=== PATIENT | male | born 1940 | race Caucasian/White ===

== ENCOUNTER 2019-01-26 15:55 | Emergency (ER) | payer MEDICARE, OTHER ==
[2019-01-26] MEDS ORDERED: diphenhydrAMINE 50 MG Cap PO ONE (16:17)
[2019-01-26] MEDS ORDERED: methylPREDNISolone Sodium Succinate 125 MG/2 ML SDV IM ONE (16:17)
--- NOTE | 2019-01-26 16:29 | EDM.PDOC ---
ED HPI GENERAL MEDICAL PROBLEM - General Chief Complaint: Skin Complaint Stated Complaint: SKIN REACTION Time Seen by Provider: 01/26/19 16:11 Source of Information: Reports: Patient History Limitations: Reports: No Limitations - History of Present Illness INITIAL COMMENTS - FREE TEXT/NARRATIVE: HISTORY AND PHYSICAL: History of present illness: patient is a 78-year-old male who presents to the emergency room today with complaints of bilateral upper extremity and trunk well which she started to develop earlier this afternoon. He states the welts have progressively gotten worse and are pruritic in nature. He denies any new exposures such as detergents , foods or medications. He denies any respiratory involvement. Patient denies any fever, chills, headache, change in vision, syncope or near syncope. Denies any chest pain, back pain, shortness of breath or cough. Denies any abdominal pain, nausea, vomiting, diarrhea, constipation or dysuria. Has not noted any blood in urine or stool. Patient has been eating and drinking appropriately. Review of systems: As per history of present illness and below otherwise all systems reviewed and negative. Past medical history: As per history of present illness and as reviewed below otherwise noncontributory. Surgical history: As per history of present illness and as reviewed below otherwise noncontributory. Social history: See social history for further information Family history: As per history of present illness and as reviewed below otherwise noncontributory. Physical exam: General: well-developed and well-nourished 78-year-old male. Alert and oriented. Nontoxic appearing and in no acute distress. HEENT: Atraumatic, normocephalic, pupils equal and reactive bilaterally, negative for conjunctival pallor or scleral icterus, mucous membranes moist, TMs normal bilaterally, throat clear, neck supple, nontender, trachea midline. No drooling or trismus noted. No meningeal signs. No hot potato voice noted. Lungs: Clear to auscultation, breath sounds equal bilaterally, chest nontender.no respiratory involvement. Heart: S1S2, regular rate and rhythm without overt murmur Abdomen: Soft, nondistended, nontender. Negative for masses or hepatosplenomegaly. Negative for costovertebral tenderness. Skin: Urticaria rash noted to bilateral antecubital space into biceps and right chest wall into abdomen and groin. Otherwise remaining skin is intact, warm, dry. No lesions or rashes noted. Extremities: Atraumatic, moves all extremities per self without difficulty or deficits. Neurovascular unremarkable. Neuro: Awake, alert, oriented. Cranial nerves II through XII unremarkable. Cerebellum unremarkable. Motor and sensory unremarkable throughout. Exam nonfocal. Notes: I did have Dr. Castle look at this patient as well. He is agreeable that this is possibly an allergic type reaction. signs and symptoms that would prompt him to return to the emergency room were reviewed and discussed.Supportive care measures were reviewed and discussed. Voices understanding and is agreeable to plan of care. Denies any further questions or concerns at this time. Diagnostics: none Therapeutics: Solu-Medrol, Benadryl Prescription: Medrol Dosepak Impression: urticaria Plan: 1. Avoid triggers. Continue to monitor for possible exposures/triggers/foods. 2. While symptomatic continue to routinely take Benadryl 50mg every 4-6 hours and Zantac 150mg twice daily. Take the Medrol dose pack as prescribed. 3. You may use topical calamine lotion, cool tempid oatmeal baths, Aveeno bath/ lotions. 4. Please follow up with your Primary care doctor as we discussed Return to the ED as needed and as discussed. Definitive disposition and diagnosis as appropriate pending reevaluation and review of above. - Related Data Allergies Allergy/AdvReac Type Severity Reaction Status Date / Time No Known Allergies Allergy Verified 11/26/13 08:19 Home Meds: Home Meds Allopurinol [Zyloprim] 1 tab PO DAILY 11/26/13 [History] Metoprolol Succinate [Toprol XL 100mg] 100 mg PO DAILY 11/26/13 [History] Warfarin [Coumadin] 5 mg PO DAILY #30 tab 11/27/13 [Rx] Losartan Potassium 01/26/19 [History] methylPREDNISolone [Medrol] 1 dose PO DAILY 6 Days #1 dospk 01/26/19 [Rx] Past Medical History Cardiovascular History: Reports: Afib, Hypertension Musculoskeletal History: Reports: Gout Neurological History: Reports: TIA Social & Family History - Family History Family Medical History: Noncontributory - Tobacco Use Smoking Status *Q: Never Smoker - Recreational Drug Use Recreational Drug Use: No ED ROS GENERAL - Review of Systems Review Of Systems: Comprehensive ROS is negative, except as noted in HPI. ED EXAM, SKIN/RASH Exam: See Below (See dictation) Course - Vital Signs Last Recorded V/S: Last Vital Signs Temp 96.2 F 01/26/19 16:16 Pulse 92 01/26/19 16:16 Resp 16 01/26/19 16:16 BP 146/74 H 01/26/19 16:16 Pulse Ox 99 01/26/19 16:16 - Orders/Labs/Meds Meds: Medications Discontinued Medications Generic Name Dose Route Start Last Admin Trade Name Rosa PRDre Reason Stop Dose Admin Diphenhydramine HCl 50 mg 01/26/19 16:17 01/26/19 16:33 Benadryl PO 01/26/19 16:18 50 mg ONETIME ONE Administration Methylprednisolone Sodium Succinate 125 mg 01/26/19 16:17 01/26/19 16:33 Solu-Medrol IM 01/26/19 16:18 125 mg ONETIME ONE Administration Departure - Departure Time of Disposition: 16:29 Disposition: Home, Self-Care 01 Clinical Impression: Urticaria - Discharge Information Prescriptions: methylPREDNISolone [Medrol] 1 dose PO DAILY 6 Days #1 dospk Referrals: Rolan Nevarez MD [Primary Care Provider] - Forms: ED Department Discharge Additional Instructions: The following information is given to patients seen in the emergency department who are being discharged to home. This information is to outline your options for follow-up care. We provide all patients seen in our emergency department with a follow-up referral. The need for follow-up, as well as the timing and circumstances, are variable depending upon the specifics of your emergency department visit. If you don't have a primary care physician on staff, we will provide you with a referral. We always advise you to contact your personal physician following an emergency department visit to inform them of the circumstance of the visit and for follow-up with them and/or the need for any referrals to a consulting specialist. The emergency department will also refer you to a specialist when appropriate. This referral assures that you have the opportunity for follow-up care with a specialist. All of these measure are taken in an effort to provide you with optimal care, which includes your follow-up. Under all circumstances we always encourage you to contact your private physician who remains a resource for coordinating your care. When calling for follow-up care, please make the office aware that this follow-up is from your recent emergency room visit. If for any reason you are refused follow-up, please contact the [facility] Emergency Department at and asked to speak to the emergency department charge nurse. [facility] [address] [place] [address] [address] 1. Avoid triggers. Continue to monitor for possible exposures/triggers/foods. 2. While symptomatic continue to routinely take Benadryl 50mg every 4-6 hours and Zantac 150mg twice daily. Take the Medrol dose pack as prescribed. 3. You may use topical calamine lotion, cool tempid oatmeal baths, Aveeno bath/ lotions. 4. Please follow up with your Primary care doctor as we discussed Return to the ED as needed and as discussed.
[2019-01-26 17:20] VITALS: BP 139/73; PULSE 81
== END 2019-01-26 17:20 | disposition home or self-care (01) ==
LOC: MW.ED 15:55
DX: L50.9 Urticaria, unspecified (principal); I10 Essential (primary) hypertension; I48.91 Unspecified atrial fibrillation; Z86.73 Personal history of transient ischemic attack (TIA), and cerebral infarction without residual deficits; Z79.01 Long term (current) use of anticoagulants; Z79.899 Other long term (current) drug therapy
CPT/HCPCS: 96372; 99283; A9270; J2930

== ENCOUNTER 2020-04-07 10:09 | Emergency (ER) | payer MEDICARE, OTHER ==
[2020-04-07] MEDS ORDERED: Sodium Chloride 0.9% 10 ML Syringe FLUSH PRN (10:23)
[2020-04-07] MEDS ORDERED: Sodium Chloride 0.9% 2.5 ML Syringe FLUSH PRN (10:23)
--- NOTE | 2020-04-07 10:48 | PCM.SN.2 ---
#1 Interpretation EKG Date: 04/07/20 Time: 10:09 Rhythm: A-Fib Rate (Beats/Min): 121 [place]: Normal P-Wave: Present QRS: Normal ST-T: Normal QT: Normal EKG Interpretation Comments: Atrial fibrillation at a rate of 121 bpm without overt ischemic changes
--- NOTE | 2020-04-07 11:01 | CR ---
INDICATION: Difficulty breathing. Cardiac surgery March 30, 2020 COMPARISON: None TECHNIQUE: Single-view chest radiograph obtained portably FINDINGS: TUBES AND LINES: None. HEART AND MEDIASTINUM: Mildly enlarged heart. Sternotomy.. LUNGS AND PLEURAL SPACES: Right lung the right pleural space. Airspace disease in the left midlung and left base and small left effusion. Subcutaneous emphysema on the left. No visible pneumothorax. OSSEOUS STRUCTURES: Age-appropriate appearance. No acute focal finding. IMPRESSION: 1. Mildly enlarged heart. Sternotomy. 2. Airspace disease in the left midlung and left base and small left effusion. 3. Significant subcutaneous emphysema on the left but no visible pneumothorax. The exact etiology of this subcutaneous emphysema is not visible on the study. 4. Normal appearing right lung and right pleural space. Dictated by Moises Ash MD @ Apr 07 2020 10:57AM Signed by Dr. Moises Ash @ Apr 07 2020 10:59AM
[2020-04-07 11:11] LABS: BLOOD UREA NITROGEN,BUN 32 mg/dL (7.0-18.0); CARBON DIOXIDE,CO2 26.5 mmol/L (21.0-32.0); CHLORIDE,CL 102 mmol/L (98-107); GLUCOSE RANDOM 106 mg/dL (74-106); SODIUM,NA 139 mmol/L (136-148)
[2020-04-07] MEDS ORDERED: Aspirin 81 MG Tab.Chew PO ONE (11:19)
[2020-04-07] MEDS ORDERED: Iopamidol 755 MG/ML 500 ML Multipack Bottle IVPUSH ONE (13:01)
--- NOTE | 2020-04-07 13:35 | CT ---
INDICATION: Dyspnea. Recent open heart surgery. TECHNIQUE: CT chest pulmonary angiogram acquired with IV contrast. COMPARISON: Chest radiograph 04/07/2020 FINDINGS: The thoracic aorta is normal in caliber. There is atherosclerotic calcification. Main pulmonary artery is normal in caliber. No pulmonary embolus. Sequelae of recent median sternotomy and cardiac surgery with a small amount of fluid and gas within the anterior mediastinum. No abscess formation. There is also gas within the chest wall, greater on the left. This extends from the anterior chest laterally and into the posterior thoracic tissues as well as caudally along the lateral upper abdomen. Distal extent is not imaged. Subcutaneous gas extends into the base of the neck and the cephalad extent is not imaged. Heart size is prominent. Small amount of pericardial fluid. Reflux of contrast into the IVC and hepatic veins likely reflects a degree of right heart failure. Moderate-sized bilateral pleural effusions right greater than left. No pneumothorax. There are biapical pleural parenchymal opacities. There is emphysema with scattered blebs. Irregular curvilinear opacity in the right apex measuring 1.2 by 0.5 by 1.4 cm (axial image 63, coronal image 94). Mild degree of compressive atelectasis in the right lower lobe. There is mild linear atelectasis in the lingula and mild compressive atelectasis in the left lower lobe. No lymphadenopathy. No acute abnormality in the upper abdomen. Other than median sternotomy, there is no acute osseous abnormality. No suspicious bone lesion. IMPRESSION: 1. No pulmonary embolus. 2. Sequelae of recent median sternotomy and cardiac surgery with small amount of anterior mediastinal fluid and gas as well as subcutaneous gas in the chest, neck and upper abdomen. 3. Moderate sized bilateral pleural effusions, right greater than left. Small amount of pericardial fluid. 4. Emphysema with irregular nodular opacity in the right apex. Comparison to prior CT would be useful to document stability. Otherwise this requires further evaluation with PET-CT or short interval follow-up CT in 3 months. Please note that all CT scans at this facility use dose modulation, iterative reconstruction, and/or weight-based dosing when appropriate to reduce radiation dose to as low as reasonably achievable. Dictated by Sundar Newman MD @ Apr 07 2020 1:20PM Signed by Dr. Sundar Newman @ Apr 07 2020 1:34PM
[2020-04-07] MEDS ORDERED: Furosemide 40 MG/4 ML VIAL IVPUSH ONE (14:12)
[2020-04-07 14:52] VITALS: BP 166/96; PULSE 103
--- NOTE | 2020-04-07 15:08 | EDM.PDOC ---
ED HPI GENERAL MEDICAL PROBLEM - General Chief Complaint: Chest Pain Stated Complaint: CAN NOT BREATH Time Seen by Provider: 04/07/20 10:10 Source of Information: Reports: Patient History Limitations: Reports: No Limitations - History of Present Illness INITIAL COMMENTS - FREE TEXT/NARRATIVE: HISTORY AND PHYSICAL: History of present illness: Patient is a 79-year-old male who presents to the emergency room today with concern of shortness of breath with his . Patient states he is 8 days out from a quadruple bypass surgery that he had done with Dr. Fito Traore at [facility] in [place]. Patient states that he was just discharged and got home yesterday. Patient states starting last night, he began feeling short of breath which worsened throughout the night. Patient states he was unable to sleep due to the shortness of breath. Patient states he also has a history of COPD, afib on warfarin, htn. Patient states following the surgery, his INR was a little bit lower so they had "given him a medication "to speed up his INR. Patient states that he did not have any complications during the surgery and that his stay in the hospital he was feeling generally well. Patient states he was not having any significant shortness of breath until last night. Patient denies fever, chills, chest pain, or cough. Denies headache, neck stiff ness, change in vision, syncope, or near syncope. Denies nausea, vomiting, abdominal pain, diarrhea, constipation, or dysuria. Has not noted any blood in urine or stool. Review of systems: As per history of present illness and below otherwise all systems reviewed and negative. Past medical history: As per history of present illness and as reviewed below otherwise noncontributory. Surgical history: As per history of present illness and as reviewed below otherwise noncontributory. Social history: See social history for further information Family history: As per history of present illness and as reviewed below otherwise noncontributory. Physical exam: General: Patient is alert, oriented, and moderate respiratory distress. Patient sitting on exam table, labored breathing, RR30, O295%, [id number] otherwise vitally stable. HEENT: Atraumatic, normocephalic, pupils equal and reactive bilaterally, negative for conjunctival pallor or scleral icterus, mucous membranes moist, TMs normal bilaterally, throat clear, neck supple, nontender, trachea midline. No drooling or trismus noted. No meningeal signs. No hot potato voice noted. Lungs/chest: Incision consistent with recent surgical history. No erythema, drainage, blood, or pus noted from incision and healing appropriately. Patient speaking 1-2 words with breathlessness, no wheezing or stridor, using accessory muscle use with moderate respiratory distress. Clear to auscultation, breath sounds equal bilaterally, chest nontender. Heart: Tachycardic 120s, S1S2, irregular rate and rhythm without overt murmur Abdomen: Soft, nondistended, nontender. Negative for masses or hepatosplenomegaly. Negative for costovertebral tenderness. Pelvis: Stable nontender. Genitourinary: Deferred. Rectal: Deferred. Skin: Intact, warm, dry. No lesions or rashes noted. Extremities: Atraumatic, negative for cords or calf pain. Neurovascular unremarkable. Neuro: Awake, alert, oriented. Cranial nerves II through XII unremarkable. Cerebellum unremarkable. Motor and sensory unremarkable throughout. Exam nonfocal. Notes: Dr. Arambula verbally involved in patient care. See his official dictation for EKG interpretation. Upon initial exam, patient does have labored breathing with increased respiratory rate and heart rate. He is maintaining his oxygen at this time. Patient was quickly placed to BiPAP. After 5 to 10 minutes of initiation of BiPAP, patient appears much more comfortable and is able to speak full sentences with the BiPAP mask on. His vitals have stabilized on Bipap and his respiratory rate is now 17, oxygen 100%, heart rate 90s to 100s. His blood pressure remains stable at 150s over 90s. I did call and speak to patients surgeon, Dr. Fito Traore and thoroughly discussed patients case. Will transfer to [facility]. I then spoke to the hospitalist for [facility], Dr. Lopez and accepting of transfer, she requests patient receive a dose of Lasix while in the ED. Flight arranged. Patient remains vitally stable throughout remainder of stay in ED and flight at bedside and patient stable. All incidental findings of imaging today discussed with patient and the importance for follow up; expresses understanding. Diagnostics: EKG, CBC, CMP, UA, CXR, Trop, CKMB, Ang CT, ddimer, PT/INR, PTT, ABG Therapeutics: Bipap, ASA, Saline lock, Lasix Impression: Acute respiratory failure Post op cardiac bypass, day 8 Congestive Heart Failure Bilateral pleural effusion Acute kidney injury Plan: Transfer to [facility] to Dr. Lopez, hospitalist / Dr. Fito Traore, vascular surgeon via flight. Critical care time is exclusive of billable procedures and the time to perform these procedures. Critical care time was used to prevent vital system organ failure and deterioration. Critical care time includes bedside management and high-complexity decision making requiring my highest level of mental preparedness and attention. This includes reviewing the patient's chart and prior medical records, ordering and reviewing interpreting laboratory studies and imaging results, interpretation of vital signs and EKG, pulse oximetry, and discussion with the admitting team along with EMS and nursing staff. Patient presented with critical vital signs that required immediate intervention, acute respiratory failure requiring Bipap and immediate transfer for additional close monitoring and continuation of treatment CC Time: 45 minutes Definitive disposition and diagnosis as appropriate pending reevaluation and review of above. - Related Data Allergies Allergy/AdvReac Type Severity Reaction Status Date / Time No Known Allergies Allergy Verified 11/26/13 08:19 Home Meds: Home Meds Metoprolol Succinate [Toprol XL 100mg] 100 mg PO DAILY 11/26/13 [History] allopurinoL [Zyloprim] 1 tab PO DAILY 11/26/13 [History] Warfarin [Coumadin] 5 mg PO DAILY #30 tab 11/27/13 [Rx] Losartan Potassium 01/26/19 [History] methylPREDNISolone [Medrol] 1 dose PO DAILY 6 Days #1 dospk 01/26/19 [Rx] Past Medical History Cardiovascular History: Reports: Afib, Bypass, Hypertension Musculoskeletal History: Reports: Gout Neurological History: Reports: TIA - Past Surgical History Other Cardiovascular Surgeries/Procedures: CABG x4 Social & Family History - Family History Family Medical History: No Pertinent Family History - Tobacco Use Tobacco Use Status *Q: Never Tobacco User - Recreational Drug Use Recreational Drug Use: No ED ROS GENERAL - Review of Systems Review Of Systems: Comprehensive ROS is negative, except as noted in HPI. ED EXAM, GENERAL - Physical Exam Exam: See Below (see dictation) Course - Vital Signs Last Recorded V/S: Last Vital Signs Temp 96.8 F L 04/07/20 10:10 Pulse 103 H 04/07/20 14:08 Resp 17 04/07/20 13:16 BP 166/96 H 04/07/20 14:08 Pulse Ox 99 04/07/20 14:08 - Orders/Labs/Meds Orders: Active Orders 24 hr Category Date Time Status BIPAP [RT BiPAP/CPAP] [RC] ASDIRECTED Care 04/07/20 10:24 Active Cardiac Monitoring [RC] . DIRECTED Care 04/07/20 10:23 Active EKG Documentation Completion [RC] STAT Care 04/07/20 10:23 Active UA RFX SUDHAKAR AND CULT IF INDIC [URIN] Stat Lab 04/07/20 10:23 Ordered Sodium Chloride 0.9% [Saline Flush] Med 04/07/20 10:23 Active 10 ml FLUSH ASDIRECTED PRN Sodium Chloride 0.9% [Saline Flush] Med 04/07/20 10:23 Active 2.5 ml FLUSH ASDIRECTED PRN Saline Lock Insert [OM.PC] Stat Oth 04/07/20 10:23 Ordered Medication Orders Sodium Chloride (Saline Flush) 10 ml FLUSH ASDIRECTED PRN PRN Reason: Keep Vein Open Last Admin: 04/07/20 11:58 Dose: 10 ml Documented by: LILLY Sodium Chloride (Saline Flush) 2.5 ml FLUSH ASDIRECTED PRN PRN Reason: Keep Vein Open Last Admin: 04/07/20 11:59 Dose: 2.5 ml Documented by: LILLY Labs: Laboratory Tests 04/07/20 04/07/20 04/07/20 Range/Units 10:19 10:19 10:19 WBC 14.05 H (4.0-11.0) K/uL RBC 3.85 L (4.50-5.90) M/uL Hgb 11.7 L (13.0-17.0) g/dL Hct 36.0 L (38.0-50.0) % MCV 93.5 (80.0-98.0) fL MCH 30.4 (27.0-32.0) pg MCHC 32.5 (31.0-37.0) g/dL RDW Std Deviation 49.3 (28.0-62.0) fl RDW Coeff of Sarah 15 (11.0-15.0) % Plt Count 330 (150-400) K/uL MPV 10.10 (7.40-12.00) fL Add Manual Diff YES Neutrophils % (Manual) 76 (48.0-80.0) % Band Neutrophils % 5 % Lymphocytes % (Manual) 12 L (16.0-40.0) % Monocytes % (Manual) 3 (0.0-15.0) % Basophils % (Manual) 2 H (0.0-1.5) % Metamyelocytes % 2 % Nucleated RBC % 0.0 /100WBC Absolute Seg Neuts 10.7 H (1.4-5.7) Band Neutrophils # 0.7 Lymphocytes # (Manual) 1.7 (0.6-2.4) Monocytes # (Manual) 0.4 (0.0-0.8) Basophils # (Manual) 0.3 H (0.0-0.1) Absolute Metamyelocyte 0.3 Nucleated RBCs # 0 K/uL D-Dimer, Quantitative 2.53 H (0.0-0.50) mg/L FEU ABG pH (7.35-7.45) ABG pCO2 (35-45) mmHG ABG pO2 (75-100) mmHG ABG HCO3 (22-26) mEq/L ABG Total CO2 ABG Base Excess (-2.0-2.0) Lactate (0.20-2.00) mmol/L Sodium 139 (136-148) mmol/L Potassium 4.0 (3.5-5.1) mmol/L Chloride 102 (98-107) mmol/L Carbon Dioxide 26.5 (21.0-32.0) mmol/L BUN 32 H (7.0-18.0) mg/dL Creatinine 1.4 H (0.8-1.3) mg/dL Est Cr Clr Drug Dosing TNP Estimated GFR (MDRD) 49.1 ml/min Glucose 106 (74-106) mg/dL Calcium 9.1 (8.5-10.1) mg/dL Total Bilirubin 1.3 H (0.2-1.0) mg/dL AST 28 (15-37) IU/L ALT 28 (14-63) IU/L Alkaline Phosphatase 91 (46-116) U/L CK-MB (CK-2) 5.5 H (0-3.6) ng/mL Troponin I 0.208 H* (0.000-0.056) ng/mL B-Natriuretic Peptide (<100) PG/ML Total Protein 7.1 (6.4-8.2) g/dL Albumin 3.7 (3.4-5.0) g/dL Globulin 3.4 (2.6-4.0) g/dL Albumin/Globulin Ratio 1.1 (0.9-1.6) 04/07/20 04/07/20 04/07/20 Range/Units 10:19 11:15 13:26 WBC (4.0-11.0) K/uL RBC (4.50-5.90) M/uL Hgb (13.0-17.0) g/dL Hct (38.0-50.0) % MCV (80.0-98.0) fL MCH (27.0-32.0) pg MCHC (31.0-37.0) g/dL RDW Std Deviation (28.0-62.0) fl RDW Coeff of Sarah (11.0-15.0) % Plt Count (150-400) K/uL MPV (7.40-12.00) fL Add Manual Diff Neutrophils % (Manual) (48.0-80.0) % Band Neutrophils % % Lymphocytes % (Manual) (16.0-40.0) % Monocytes % (Manual) (0.0-15.0) % Basophils % (Manual) (0.0-1.5) % Metamyelocytes % % Nucleated RBC % /100WBC Absolute Seg Neuts (1.4-5.7) Band Neutrophils # Lymphocytes # (Manual) (0.6-2.4) Monocytes # (Manual) (0.0-0.8) Basophils # (Manual) (0.0-0.1) Absolute Metamyelocyte Nucleated RBCs # K/uL D-Dimer, Quantitative (0.0-0.50) mg/L FEU ABG pH 7.417 (7.35-7.45) ABG pCO2 38 (35-45) mmHG ABG pO2 110 H (75-100) mmHG ABG HCO3 25 (22-26) mEq/L ABG Total CO2 22.9 ABG Base Excess 0.2 (-2.0-2.0) Lactate 1.3 (0.20-2.00) mmol/L Sodium (136-148) mmol/L Potassium (3.5-5.1) mmol/L Chloride (98-107) mmol/L Carbon Dioxide (21.0-32.0) mmol/L BUN (7.0-18.0) mg/dL Creatinine (0.8-1.3) mg/dL Est Cr Clr Drug Dosing Estimated GFR (MDRD) ml/min Glucose (74-106) mg/dL Calcium (8.5-10.1) mg/dL Total Bilirubin (0.2-1.0) mg/dL AST (15-37) IU/L ALT (14-63) IU/L Alkaline Phosphatase (46-116) U/L CK-MB (CK-2) (0-3.6) ng/mL Troponin I (0.000-0.056) ng/mL B-Natriuretic Peptide 469 H (<100) PG/ML Total Protein (6.4-8.2) g/dL Albumin (3.4-5.0) g/dL Globulin (2.6-4.0) g/dL Albumin/Globulin Ratio (0.9-1.6) Meds: Medications Generic Name Dose Route Start Last Admin Trade Name Freq PRN Reason Stop Dose Admin Sodium Chloride 10 ml 04/07/20 10:23 04/07/20 11:58 Saline Flush FLUSH 10 ml ASDIRECTED PRN Administration Keep Vein Open Sodium Chloride 2.5 ml 04/07/20 10:23 04/07/20 11:59 Saline Flush FLUSH 2.5 ml ASDIRECTED PRN Administration Keep Vein Open Discontinued Medications Generic Name Dose Route Start Last Admin Trade Name Freq PRN Reason Stop Dose Admin Aspirin 324 mg 04/07/20 11:19 04/07/20 11:59 Aspirin PO 04/07/20 11:20 324 mg ONETIME ONE Administration Furosemide 40 mg 04/07/20 14:12 04/07/20 14:51 Lasix IVPUSH 04/07/20 14:13 40 mg NOW ONE Administration Iopamidol 100 ml 04/07/20 13:01 04/07/20 13:01 Isovue Multipack-370 (76%) IVPUSH 04/07/20 13:02 100 ml ONETIME ONE Administration Departure - Departure Time of Disposition: 15:36 Disposition: DC/Tfer to Acute Hospital 02 Clinical Impression: Postsurgical aortocoronary bypass status, Pleural effusion, Acute kidney injury Acute respiratory failure Qualifiers: Respiratory failure complication: unspecified whether with hypoxia or hypercapnia Qualified Code(s): J96.00 - Acute respiratory failure, unspecified whether with hypoxia or hypercapnia Congestive heart failure Qualifiers: Heart failure type: unspecified Heart failure chronicity: unspecified Qualified Code(s): I50.9 - Heart failure, unspecified - Discharge Information Referrals: PCP,None [Primary Care Provider] - Sepsis Event Note (ED) - Evaluation Sepsis Screening Result: No Definite Risk - Focused Exam Vital Signs: Vital Signs Temp Pulse Resp BP Pulse Ox 04/07/20 14:08 103 H 166/96 H 99 04/07/20 13:16 99 17 156/85 H 100 04/07/20 12:22 93 143/85 H 99 04/07/20 11:23 93 122/74 99 04/07/20 10:10 96.8 F L 120 H 21 H 145/83 H 92 L - My Orders Last 24 Hours: My Active Orders 04/07/20 10:23 Cardiac Monitoring [RC] . DIRECTED EKG Documentation Completion [RC] STAT UA RFX SUDHAKAR AND CULT IF INDIC [URIN] Stat Sodium Chloride 0.9% [Saline Flush] 10 ml FLUSH ASDIRECTED PRN Sodium Chloride 0.9% [Saline Flush] 2.5 ml FLUSH ASDIRECTED PRN Saline Lock Insert [OM.PC] Stat 04/07/20 10:24 BIPAP [RT BiPAP/CPAP] [RC] ASDIRECTED - Assessment/Plan Last 24 Hours: My Active Orders 04/07/20 10:23 Cardiac Monitoring [RC] . DIRECTED EKG Documentation Completion [RC] STAT UA RFX SUDHAKAR AND CULT IF INDIC [URIN] Stat Sodium Chloride 0.9% [Saline Flush] 10 ml FLUSH ASDIRECTED PRN Sodium Chloride 0.9% [Saline Flush] 2.5 ml FLUSH ASDIRECTED PRN Saline Lock Insert [OM.PC] Stat 04/07/20 10:24 BIPAP [RT BiPAP/CPAP] [RC] ASDIRECTED
== END 2020-04-07 15:10 ==
LOC: MW.ED 10:09
DX: J96.00 Acute respiratory failure, unspecified whether with hypoxia or hypercapnia (principal); I11.0 Hypertensive heart disease with heart failure; I50.9 Heart failure, unspecified; I48.91 Unspecified atrial fibrillation; N17.9 Acute kidney failure, unspecified; J90 Pleural effusion, not elsewhere classified; M10.9 Gout, unspecified; J44.9 Chronic obstructive pulmonary disease, unspecified; Z86.73 Personal history of transient ischemic attack (TIA), and cerebral infarction without residual deficits; Z79.899 Other long term (current) drug therapy; Z95.1 Presence of aortocoronary bypass graft; Z79.01 Long term (current) use of anticoagulants
CPT/HCPCS: 36415; 36600; 71045; 71275; 80053; 82553; 82803; 83605; 83880; 84484; 85025; 85379; 85610; 85730; 93005; 94660; 96374; 99291; A9270; J1940; Q9967

== ENCOUNTER 2020-05-13 17:58 | Emergency (ER) | payer MEDICARE, OTHER ==
[2020-05-13] MEDS ORDERED: Sodium Chloride 0.9% 10 ML Syringe FLUSH PRN (18:00)
[2020-05-13] MEDS ORDERED: Sodium Chloride 0.9% 2.5 ML Syringe FLUSH PRN (18:00)
[2020-05-13] MEDS ORDERED: Lactated Ringers 1,000 ML IV ONE (18:00)
--- NOTE | 2020-05-13 18:05 | EDM.PDOC ---
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 He denies LOC, nausea, vomiting, chest pain, shortness of breath, abdominal pain, palpitation, diarrhea, hip pain, headache, neck pain. He had no precipitating symptoms prior to the fall. Accu-Chek = 95. He is status pelvis quadruple bypass by Dr. Fito Traore at [facility] in March,. ROS: A 10-point review of systems, other than pertinent positives and negatives as stated per HPI, is otherwise negative Past medical history: No additional pertinent history Past Surgical history: No additional pertinent history Social history: No additional pertinent history Family history: No additional pertinent history PHYSICAL EXAM General: AOx4, GCS = 15, No distress HEENT: dry mucous membrane, contusion to the left forehead Neck: supple, no spine tenderness Cardiac: S1S2 RRR Respiratory: mild respiratory distress, no crackles or rales, no wheezing, diminished breath sounds on the left side Abdomen: Soft, nontender, no rebound or guarding, nondistended, no pulsatile mass. Back: nontender to C/T/L-spine. Musculoskeletal: NVI distally, no deformity Neuro: No focal deficits, CN 2 - 12 WNL. - Related Data Allergies Allergy/AdvReac Type Severity Reaction Status Date / Time No Known Allergies Allergy Verified 05/13/20 18:14 Home Meds: Home Meds Metoprolol Succinate [Toprol XL 100mg] 100 mg PO DAILY 11/26/13 [History] allopurinoL [Zyloprim] 1 tab PO DAILY 11/26/13 [History] Warfarin [Coumadin] 5 mg PO DAILY #30 tab 11/27/13 [Rx] Losartan Potassium 01/26/19 [History] methylPREDNISolone [Medrol] 1 dose PO DAILY 6 Days #1 dospk 01/26/19 [Rx] Aspirin [Children's Aspirin] 1 dose PO ASDIRECTED 05/13/20 [History] Furosemide [Lasix] 1 dose PO ASDIRECTED 05/13/20 [History] Past Medical History Cardiovascular History: Reports: Afib, Bypass, Hypertension Musculoskeletal History: Reports: Gout Neurological History: Reports: TIA - Past Surgical History Other Cardiovascular Surgeries/Procedures: CABG x4 Social & Family History - Family History Family Medical History: No Pertinent Family History ED ROS GENERAL - Review of Systems Review Of Systems: See Below (see dictation) ED EXAM, DIZZINESS - Physical Exam Exam: See Below (see dictation) #1 Interpretation EKG Interpretation Comments: Heart rate = 75 bpm, atrial fibrillation, normal QRS interval, no STEMI. EKG and rhythm strip interpreted by me at 1753 Course - Vital Signs Last Recorded V/S: Last Vital Signs Temp 97.7 F 05/13/20 17:58 Pulse 98 05/13/20 17:58 Resp 18 05/13/20 17:58 BP 132/72 05/13/20 17:58 Pulse Ox 98 05/13/20 17:58 - Orders/Labs/Meds Orders: Active Orders 24 hr Category Date Time Status Cardiac Monitoring [RC] . DIRECTED Care 05/13/20 18:00 Active EKG Documentation Completion [RC] STAT Care 05/13/20 18:01 Active Orthostatic Vital Signs [RC] ASDIRECTED Care 05/13/20 18:00 Active Pulse Oximetry [RC] ASDIRECTED Care 05/13/20 18:00 Active Chest 2V [CR] Stat Exams 05/13/20 18:22 Ordered B-TYPE NATRIURETIC PEPTIDE,BNP [CHEM] Stat Lab 05/13/20 17:52 Received Sodium Chloride 0.9% [Saline Flush] Med 05/13/20 18:00 Active 10 ml FLUSH ASDIRECTED PRN Sodium Chloride 0.9% [Saline Flush] Med 05/13/20 18:00 Active 2.5 ml FLUSH ASDIRECTED PRN Saline Lock Insert [OM.PC] Stat Ot 05/13/20 18:00 Ordered Medication Orders Sodium Chloride (Saline Flush) 10 ml FLUSH ASDIRECTED PRN PRN Reason: Keep Vein Open Sodium Chloride (Saline Flush) 2.5 ml FLUSH ASDIRECTED PRN PRN Reason: Keep Vein Open Labs: Laboratory Tests 05/13/20 05/13/20 05/13/20 Range/Units 17:52 17:52 17:52 WBC 8.13 (4.0-11.0) K/uL RBC 3.77 L (4.50-5.90) M/uL Hgb 11.0 L (13.0-17.0) g/dL Hct 34.3 L (38.0-50.0) % MCV 91.0 (80.0-98.0) fL MCH 29.2 (27.0-32.0) pg MCHC 32.1 (31.0-37.0) g/dL RDW Std Deviation 53.4 (28.0-62.0) fl RDW Coeff of Sarah 16 H (11.0-15.0) % Plt Count 229 (150-400) K/uL MPV 10.40 (7.40-12.00) fL Neut % (Auto) 69.8 (48.0-80.0) % Lymph % (Auto) 18.6 (16.0-40.0) % [place] % (Auto) 8.6 (0.0-15.0) % Eos % (Auto) 2.6 (0.0-7.0) % Baso % (Auto) 0.4 (0.0-1.5) % Neut # (Auto) 5.7 (1.4-5.7) K/uL Lymph # (Auto) 1.5 (0.6-2.4) K/uL [place] # (Auto) 0.7 (0.0-0.8) K/uL Eos # (Auto) 0.2 (0.0-0.7) K/uL Baso # (Auto) 0.0 (0.0-0.1) K/uL Nucleated RBC % 0.0 /100WBC Nucleated RBCs # 0 K/uL INR 1.97 APTT 30.2 (18.6-31.3) SEC Sodium 141 (136-148) mmol/L Potassium 3.9 (3.5-5.1) mmol/L Chloride 104 (98-107) mmol/L Carbon Dioxide 25.2 (21.0-32.0) mmol/L BUN 25 H (7.0-18.0) mg/dL Creatinine 1.4 H (0.8-1.3) mg/dL Est Cr Clr Drug Dosing 47.63 mL/min Estimated GFR (MDRD) 49.1 ml/min Glucose 92 (74-106) mg/dL Calcium 8.6 (8.5-10.1) mg/dL Phosphorus 2.7 (2.6-4.7) mg/dL Magnesium 1.9 (1.8-2.4) mg/dL Total Bilirubin 0.4 (0.2-1.0) mg/dL AST 20 (15-37) IU/L ALT 26 (14-63) IU/L Alkaline Phosphatase 102 (46-116) U/L Troponin I < 0.050 (0.000-0.056) ng/mL Total Protein 6.9 (6.4-8.2) g/dL Albumin 3.4 (3.4-5.0) g/dL Globulin 3.5 (2.6-4.0) g/dL Albumin/Globulin Ratio 1.0 (0.9-1.6) Urine Color Urine Appearance Urine pH (5.0-8.0) Ur Specific [place] (1.001-1.035) Urine Protein (NEGATIVE) mg/dL Urine Glucose (UA) (NEGATIVE) mg/dL Urine Ketones (NEGATIVE) mg/dL Urine Occult Blood (NEGATIVE) Urine Nitrite (NEGATIVE) Urine Bilirubin (NEGATIVE) Urine Urobilinogen (<2.0) EU/dL Ur Leukocyte Esterase (NEGATIVE) SARS-CoV-2 RNA (PB) (NEGATIVE) 05/13/20 05/13/20 Range/Units 17:58 18:20 WBC (4.0-11.0) K/uL RBC (4.50-5.90) M/uL Hgb (13.0-17.0) g/dL Hct (38.0-50.0) % MCV (80.0-98.0) fL MCH (27.0-32.0) pg MCHC (31.0-37.0) g/dL RDW Std Deviation (28.0-62.0) fl RDW Coeff of Sarah (11.0-15.0) % Plt Count (150-400) K/uL MPV (7.40-12.00) fL Neut % (Auto) (48.0-80.0) % Lymph % (Auto) (16.0-40.0) % [place] % (Auto) (0.0-15.0) % Eos % (Auto) (0.0-7.0) % Baso % (Auto) (0.0-1.5) % Neut # (Auto) (1.4-5.7) K/uL Lymph # (Auto) (0.6-2.4) K/uL [place] # (Auto) (0.0-0.8) K/uL Eos # (Auto) (0.0-0.7) K/uL Baso # (Auto) (0.0-0.1) K/uL Nucleated RBC % /100WBC Nucleated RBCs # K/uL INR APTT (18.6-31.3) SEC Sodium (136-148) mmol/L Potassium (3.5-5.1) mmol/L Chloride (98-107) mmol/L Carbon Dioxide (21.0-32.0) mmol/L BUN (7.0-18.0) mg/dL Creatinine (0.8-1.3) mg/dL Est Cr Clr Drug Dosing mL/min Estimated GFR (MDRD) ml/min Glucose (74-106) mg/dL Calcium (8.5-10.1) mg/dL Phosphorus (2.6-4.7) mg/dL Magnesium (1.8-2.4) mg/dL Total Bilirubin (0.2-1.0) mg/dL AST (15-37) IU/L ALT (14-63) IU/L Alkaline Phosphatase (46-116) U/L Troponin I (0.000-0.056) ng/mL Total Protein (6.4-8.2) g/dL Albumin (3.4-5.0) g/dL Globulin (2.6-4.0) g/dL Albumin/Globulin Ratio (0.9-1.6) Urine Color YELLOW Urine Appearance CLEAR Urine pH 5.0 (5.0-8.0) Ur Specific [place] 1.020 (1.001-1.035) Urine Protein NEGATIVE (NEGATIVE) mg/dL Urine Glucose (UA) NEGATIVE (NEGATIVE) mg/dL Urine Ketones NEGATIVE (NEGATIVE) mg/dL Urine Occult Blood NEGATIVE (NEGATIVE) Urine Nitrite NEGATIVE (NEGATIVE) Urine Bilirubin NEGATIVE (NEGATIVE) Urine Urobilinogen 0.2 (<2.0) EU/dL Ur Leukocyte Esterase NEGATIVE (NEGATIVE) SARS-CoV-2 RNA (PB) NEGATIVE (NEGATIVE) Meds: Medications Generic Name Dose Route Start Last Admin Trade Name Freq PRN Reason Stop Dose Admin Sodium Chloride 10 ml 05/13/20 18:00 Saline Flush FLUSH ASDIRECTED PRN Keep Vein Open Sodium Chloride 2.5 ml 05/13/20 18:00 Saline Flush FLUSH ASDIRECTED PRN Keep Vein Open Discontinued Medications Generic Name Dose Route Start Last Admin Trade Name Freq PRN Reason Stop Dose Admin Lactated Ringer's 1,000 mls @ 999 mls/hr 05/13/20 18:00 Ringers, Lactated IV 05/13/20 19:00 .BOLUS ONE - Re-Assessments/Exams Free Text/Narrative Re-Assessment/Exam: 05/13/20 19:[address] Edmonds, she recommends transfer to outside facility for the need of thoracentesis not available at this facility, and the need for wellness consultant services unavailable at this facility. Any emergency conditions have been stabilized to the ability of the ED prior to the transfer. Discussed with family members, they recommend going back to [facility], case was discussed and accepted by Dr. Barakat at [facility] Departure - Departure Time of Disposition: 19:00 Disposition: DC/Tfer to Acute Hospital 02 Condition: Good Clinical Impression: Near syncope, Recurrent pleural effusion on left, Dizziness - Discharge Information *PRESCRIPTION DRUG MONITORING PROGRAM REVIEWED*: Not Applicable *COPY OF PRESCRIPTION DRUG MONITORING REPORT IN PATIENT DWAINE: Not Applicable Instructions: Near-Syncope, [id number], Pleural Effusion Sepsis Event Note (ED) - Focused Exam Vital Signs: Vital Signs Temp Pulse Resp BP Pulse Ox 05/13/20 17:58 97.7 F 98 18 132/72 98 - My Orders Last 24 Hours: My Active Orders 05/13/20 17:52 B-TYPE NATRIURETIC PEPTIDE,BNP [CHEM] Stat 05/13/20 18:00 Cardiac Monitoring [RC] . DIRECTED Orthostatic Vital Signs [RC] ASDIRECTED Pulse Oximetry [RC] ASDIRECTED Sodium Chloride 0.9% [Saline Flush] 10 ml FLUSH ASDIRECTED PRN Sodium Chloride 0.9% [Saline Flush] 2.5 ml FLUSH ASDIRECTED PRN Saline Lock Insert [OM.PC] Stat 05/13/20 18:01 EKG Documentation Completion [RC] STAT 05/13/20 18:22 Chest 2V [CR] Stat - Assessment/Plan Last 24 Hours: My Active Orders 05/13/20 17:52 B-TYPE NATRIURETIC PEPTIDE,BNP [CHEM] Stat 05/13/20 18:00 Cardiac Monitoring [RC] . DIRECTED Orthostatic Vital Signs [RC] ASDIRECTED Pulse Oximetry [RC] ASDIRECTED Sodium Chloride 0.9% [Saline Flush] 10 ml FLUSH ASDIRECTED PRN Sodium Chloride 0.9% [Saline Flush] 2.5 ml FLUSH ASDIRECTED PRN Saline Lock Insert [OM.PC] Stat 05/13/20 18:01 EKG Documentation Completion [RC] STAT 05/13/20 18:22 Chest 2V [CR] Stat
[2020-05-13 18:14] VITALS: BP 132/72; PULSE 98
[2020-05-13 18:39] LABS: BLOOD UREA NITROGEN,BUN 25 mg/dL (7.0-18.0); CARBON DIOXIDE,CO2 25.2 mmol/L (21.0-32.0); CHLORIDE,CL 104 mmol/L (98-107); GLUCOSE RANDOM 92 mg/dL (74-106); POTASSIUM,K 3.9 mmol/L (3.5-5.1); SODIUM,NA 141 mmol/L (136-148)
--- NOTE | 2020-05-13 18:43 | CT ---
INDICATION: Syncope. TECHNIQUE: Head CT without intravenous contrast. Coronal and sagittal formats. COMPARISON: Head CT 11/26/2013. FINDINGS: No intracranial hemorrhage, extra-axial collection, or evidence of acute cortical infarction. Patchy periventricular and deep white matter hypoattenuation, likely reflecting chronic small vessel ischemic changes. Age-appropriate ventricles and sulci. No mass effect or midline shift. The cranium and orbits are intact. Paranasal sinuses and mastoid air cells clear. IMPRESSION: 1. No acute intracranial findings. 2. Chronic small vessel ischemic changes. Dictated by Martínez Dillard MD @ 05/13/2020 6:42:39 PM Please note that all CT scans at this facility use dose modulation, iterative reconstruction, and/or weight-based dosing when appropriate to reduce radiation dose to as low as reasonably achievable. Dictated by: Martínez Dillard MD @ 05/13/2020 18:42:46 (Electronically Signed)
--- NOTE | 2020-05-13 18:52 | CT ---
INDICATION: Syncope. TECHNIQUE: Cervical spine CT without intravenous contrast. Coronal and sagittal formats. COMPARISON: None available. FINDINGS: No static subluxation. Atlantooccipital and atlantoaxial articulations are intact. Cervical vertebral body heights are maintained. No acute fracture. Moderate multilevel degenerative disc disease, predominating at C5-C7. Multilevel uncovertebral and facet arthrosis, contributing to multilevel neural foraminal narrowing, high-grade at the left C3-C7 levels. No high-grade spinal canal stenosis. Non thickened prevertebral soft tissues. Atherosclerotic calcification predominating at the carotid bifurcations. - Imaged upper chest demonstrates mild emphysema as well as a partially imaged left pleural effusion, at least moderate volume. Partially imaged right upper lobe irregular ground-glass nodule measuring up to 1.4 cm (series 301, image 165) not substantially changed from CT 04/07/2020. IMPRESSION: 1. Cervical spine without static subluxation or acute fracture. 2. Imaged upper chest demonstrates a partially imaged left pleural effusion, at least moderate volume, as well as a right upper lobe irregular 1.4 cm ground-glass nodule. Consider further evaluation with chest CT, as clinically indicated. Dictated by Martínez Dillard MD @ 05/13/2020 6:50:47 PM Please note that all CT scans at this facility use dose modulation, iterative reconstruction, and/or weight-based dosing when appropriate to reduce radiation dose to as low as reasonably achievable. Dictated by: Martínez Dillard MD @ 05/13/2020 18:50:54 (Electronically Signed)
--- NOTE | 2020-05-13 19:05 | CR ---
INDICATION: Syncope. TECHNIQUE: PA and lateral. COMPARISON: 04/21/2020. FINDINGS: Lungs better inflated than on the previous examination. Small left-sided pleural effusion, decreased from the previous study. Tiny right-sided pleural effusion, unchanged. Subsegmental atelectasis in the lower left lung. No obvious acute infiltrate. Stable mild cardiomegaly. Cardiac postop changes, as before. Pulmonary veins not obviously engorged. No significant bony abnormality. IMPRESSION: 1. Lungs better inflated than on the previous examination. No obvious CT demonstrated. 2. Small left side pleural effusion, decreased, and unchanged tiny right-sided effusion. 3. Stable mild cardiomegaly. Dictated by Ace Diggs MD @ May 13 2020 6:58PM Signed by Dr. Ace Diggs @ May 13 2020 7:02PM
== END 2020-05-13 20:00 ==
LOC: MW.ED 17:58
DX: R55 Syncope and collapse (principal); S00.83XA Contusion of other part of head, initial encounter; J90 Pleural effusion, not elsewhere classified; J44.9 Chronic obstructive pulmonary disease, unspecified; I11.0 Hypertensive heart disease with heart failure; I50.9 Heart failure, unspecified; I25.10 Atherosclerotic heart disease of native coronary artery without angina pectoris; I48.91 Unspecified atrial fibrillation; M10.9 Gout, unspecified; Z20.822 Contact with and (suspected) exposure to COVID-19; Z86.73 Personal history of transient ischemic attack (TIA), and cerebral infarction without residual deficits; Z79.01 Long term (current) use of anticoagulants; Z95.1 Presence of aortocoronary bypass graft; W19.XXXA Unspecified fall, initial encounter
CPT/HCPCS: 36415; 70450; 71046; 72125; 80053; 81003; 83735; 83880; 84100; 84484; 85025; 85610; 85730; 93005; 99285; J7120; U0002

== ENCOUNTER 2020-08-13 07:15 | Inpatient (IN) | payer MEDICARE, OTHER ==
[2020-08-13] MEDS ORDERED: Sodium Chloride 0.9% 10 ML Syringe FLUSH PRN (07:54)
[2020-08-13] MEDS ORDERED: Sodium Chloride 0.9% 2.5 ML Syringe FLUSH PRN (07:54)
[2020-08-13] MEDS ORDERED: Sodium Chloride 0.9% 1,000 ML IV ONE (07:54)
--- NOTE | 2020-08-13 07:58 | EDM.PDOC ---
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 Patient reports that he had a recent tube removed from his left lung that was placed secondary to a pleural effusion. His reports that there was minimal fluid obtained over the last several days and it was removed last week. Patient denies any recent fevers, shakes, chills. Patient denies any nausea, vomiting or diarrhea, dysuria, frequency, urgency, chest pain, abdominal pain. Patient reports over the last day he has had increasing shortness of breath with increasing cough and feels like he might have pneumonia. Patient reports that he has not had his Covid vaccination secondary to his recent illness and was advised against it. Review of systems: As per history of present illness and below otherwise all systems reviewed and negative. Past medical history: As per history of present illness and as reviewed below otherwise noncontributory. Surgical history: As per history of present illness and as reviewed below otherwise noncontributory. Social history: No reported history of drug abuse. Family history: As per history of present illness and as reviewed below otherwise nonco ntributory. Physical exam: This patient was seen and evaluated during the 2019 SARS-CoV-2 novel coronavirus pandemic period. Community viral transmission is ongoing at time of this encounter and the emergency department is operating under pandemic response procedures. Constitutional: Patient is oriented to person, place, and time. Appears well- developed and well-nourished. No distress. HEENT: Moist mucous membranes Head: Normocephalic and atraumatic Eyes: Right eye exhibits no discharge. Left eye exhibits no discharge. No scleral icterus Neck: Normal range of motion. No tracheal deviation present. Cardiovascular: Normal rate and regular rhythm. Pulmonary: Effort normal, no respiratory distress. Abdominal: No distention Musculoskeletal: Normal range of motion Neurologic: Alert and oriented to person, place and time. Skin: [place], warm and dry. Psychiatric: Normal mood and affect. Behavior is normal. Judgment and thought content normal. Nursing note and vital signs have been reviewed Diagnostics: [] Therapeutics: [] Assessment and plan: 79-year-old gentleman with a history significant for COPD who is currently being worked up for cancer who had a recent chest tube to drain his pleural effusion removed who presents ER today secondary to cough and shortness of breath. Patient ports that he had a rattly cough since yesterday and has been feeling short of breath similar to his prior pneumonia. Patient's chest x-ray revealed a small left pleural effusion. CT scan of the chest was also obtained to rule out PE as well as pneumonia that might be hiding behind the pleural effusion. Patient's CT scan revealed no PE however did show multiple areas with increased interstitial markings consistent with possible pneumonia. Patient was started on Rocephin and clindamycin to cover for possible postobstructive pneumonia. Patient CT scan did show a new nodule and enlargement of the mass in the upper lobe. Definitive disposition and diagnosis as appropriate pending reevaluation and review of above. - Related Data Allergies Allergy/AdvReac Type Severity Reaction Status Date / Time No Known Allergies Allergy Verified 08/13/20 07:35 Home Meds: Home Meds Acetaminophen 325 mg PO Q6H PRN 08/13/20 [History] Albuterol Sulfate [Albuterol Sulfate HFA] 1 puff INH ASDIRECTED PRN 08/13/20 [History] Aspirin 81 mg PO DAILY 08/13/20 [History] Budesonide/Glycopyr/Formoterol [Breztri Aerosphere Inhaler] 2 puff INH BID 08/13/20 [History] Celecoxib 100 mg PO DAILY 08/13/20 [History] Furosemide 20 mg PO DAILY 08/13/20 [History] LORazepam [Ativan] 0.5 mg PO Q8H PRN 08/13/20 [History] Metoprolol Succinate [Toprol Xl] 50 mg PO DAILY 08/13/20 [History] Rosuvastatin [Crestor] 20 mg PO DAILY 08/13/20 [History] Sennosides/Docusate Sodium [Senna-Docusate Sodium Tablet] 1 tab PO BID PRN 08/13/20 [History] Warfarin [Coumadin] 5 mg PO DAILY 08/13/20 [History] allopurinoL [Zyloprim] 100 mg PO DAILY 08/13/20 [History] Past Medical History Cardiovascular History: Reports: Afib, Bypass, CAD, Heart Failure, Hypertension Respiratory History: Reports: COPD, PE Musculoskeletal History: Reports: Gout Neurological History: Reports: TIA - Infectious Disease History Infectious Disease History: Reports: Chicken Pox - Past Surgical History Other Cardiovascular Surgeries/Procedures: CABG x4 Social & Family History - Family History Family Medical History: No Pertinent Family History - Tobacco Use Tobacco Use Status *Q: Former Tobacco User Used Tobacco, but Quit: Yes Month/Year Tobacco Last Used: 1974 - Recreational Drug Use Recreational Drug Use: No ED ROS GENERAL - Review of Systems Review Of Systems: See Below ED EXAM, GENERAL - Physical Exam Exam: See Below #1 Interpretation EKG Interpretation Comments: EKG: As interpreted by ER physician: [place]: Nonspecific ST-T wave abnormalities Normal axis No evidence of ST elevation [place] Atrial fibrillation with a heart rate of 96 Course - Vital Signs Last Recorded V/S: Last Vital Signs Temp 98.7 F 08/13/20 07:35 Pulse 96 08/13/20 09:00 Resp 18 08/13/20 09:00 BP 131/76 08/13/20 09:00 Pulse Ox 92 L 08/13/20 09:00 - Orders/Labs/Meds Orders: Active Orders 24 hr Category Date Time Status Patient Status [ADT] Routine ADT 08/13/20 11:31 Ordered EKG Documentation Completion [RC] AM Care 08/13/20 07:54 Active CULTURE BLOOD [BC] Stat Lab 08/13/20 07:38 Received CULTURE BLOOD [BC] Stat Lab 08/13/20 08:05 Received Clindamycin Phosphate [Cleocin] 600 mg Med 08/13/20 11:17 Active Sodium Chloride 0.9% [Normal Saline] 50 ml IV ONETIME Sodium Chloride 0.9% [Saline Flush] Med 08/13/20 07:54 Active 10 ml FLUSH ASDIRECTED PRN Sodium Chloride 0.9% [Saline Flush] Med 08/13/20 07:54 Active 2.5 ml FLUSH ASDIRECTED PRN cefTRIAXone [Rocephin in Dextrose,Iso-Osm 1 GM/50 ML] 1 Med 08/13/20 11:16 Active gm Premix Bag 1 bag IV ONETIME Blood Culture x2 Reflex Set [OM.PC] Stat Oth 08/13/20 07:54 Ordered Saline Lock Insert [OM.PC] Stat Oth 08/13/20 07:54 Ordered Medication Orders Ceftriaxone Sodium/Dextrose 1 (gm/ Premix) 50 mls @ 100 mls/hr IV ONETIME ONE Stop: 08/13/20 11:45 Clindamycin Phosphate 600 mg/ (Sodium Chloride) 54 mls @ 100 mls/hr IV ONETIME ONE Stop: 08/13/20 11:49 Sodium Chloride (Sodium Chloride 0.9% 10 Ml Syringe) 10 ml FLUSH ASDIRECTED PRN PRN Reason: Keep Vein Open Last Admin: 08/13/20 08:00 Dose: 10 ml Documented by: ALEXSANDRA Sodium Chloride (Sodium Chloride 0.9% 2.5 Ml Syringe) 2.5 ml FLUSH ASDIRECTED PRN PRN Reason: Keep Vein Open Last Admin: 08/13/20 08:00 Dose: 2.5 ml Documented by: ALEXSANDRA Labs: Laboratory Tests 08/13/20 08/13/20 08/13/20 Range/Units 07:38 07:38 07:38 WBC 12.76 H (4.0-11.0) K/uL RBC 4.42 L (4.50-5.90) M/uL Hgb 12.1 L (13.0-17.0) g/dL Hct 36.8 L (38.0-50.0) % MCV 83.3 (80.0-98.0) fL MCH 27.4 (27.0-32.0) pg MCHC 32.9 (31.0-37.0) g/dL RDW Std Deviation 48.1 (28.0-62.0) fl RDW Coeff of Sarah 16 H (11.0-15.0) % Plt Count 264 (150-400) K/uL MPV 9.60 (7.40-12.00) fL Neut % (Auto) 89.5 H (48.0-80.0) % Lymph % (Auto) 5.3 L (16.0-40.0) % Emmet % (Auto) 4.4 (0.0-15.0) % Eos % (Auto) 0.6 (0.0-7.0) % Baso % (Auto) 0.2 (0.0-1.5) % Neut # (Auto) 11.4 H (1.4-5.7) K/uL Lymph # (Auto) 0.7 (0.6-2.4) K/uL Emmet # (Auto) 0.6 (0.0-0.8) K/uL Eos # (Auto) 0.1 (0.0-0.7) K/uL Baso # (Auto) 0.0 (0.0-0.1) K/uL Nucleated RBC % 0.0 /100WBC Nucleated RBCs # 0 K/uL INR Sodium 142 (136-148) mmol/L Potassium 3.8 (3.5-5.1) mmol/L Chloride 104 (98-107) mmol/L Carbon Dioxide 23.8 (21.0-32.0) mmol/L BUN 32 H (7.0-18.0) mg/dL Creatinine 1.3 (0.8-1.3) mg/dL Est Cr Clr Drug Dosing 52.23 mL/min Estimated GFR (MDRD) 53.5 ml/min Glucose 133 H (74-106) mg/dL Lactic Acid (0.4-2.0) mmol/L Calcium 9.2 (8.5-10.1) mg/dL Total Bilirubin 0.6 (0.2-1.0) mg/dL AST 29 (15-37) IU/L ALT 27 (14-63) IU/L Alkaline Phosphatase 129 H (46-116) U/L Troponin I < 0.050 (0.000-0.056) ng/mL B-Natriuretic Peptide 262 H (<100) PG/ML Total Protein 7.5 (6.4-8.2) g/dL Albumin 3.5 (3.4-5.0) g/dL Globulin 4.0 (2.6-4.0) g/dL Albumin/Globulin Ratio 0.9 (0.9-1.6) Urine Color Urine Appearance Urine pH (5.0-8.0) Ur Specific Wells (1.001-1.035) Urine Protein (NEGATIVE) mg/dL Urine Glucose (UA) (NEGATIVE) mg/dL Urine Ketones (NEGATIVE) mg/dL Urine Occult Blood (NEGATIVE) Urine Nitrite (NEGATIVE) Urine Bilirubin (NEGATIVE) Urine Urobilinogen (<2.0) EU/dL Ur Leukocyte Esterase (NEGATIVE) SARS-CoV-2 RNA (PB) (NEGATIVE) 08/13/20 08/13/20 08/13/20 Range/Units 07:38 07:38 08:05 WBC (4.0-11.0) K/uL RBC (4.50-5.90) M/uL Hgb (13.0-17.0) g/dL Hct (38.0-50.0) % MCV (80.0-98.0) fL MCH (27.0-32.0) pg MCHC (31.0-37.0) g/dL RDW Std Deviation (28.0-62.0) fl RDW Coeff of Sarah (11.0-15.0) % Plt Count (150-400) K/uL MPV (7.40-12.00) fL Neut % (Auto) (48.0-80.0) % Lymph % (Auto) (16.0-40.0) % Emmet % (Auto) (0.0-15.0) % Eos % (Auto) (0.0-7.0) % Baso % (Auto) (0.0-1.5) % Neut # (Auto) (1.4-5.7) K/uL Lymph # (Auto) (0.6-2.4) K/uL Emmet # (Auto) (0.0-0.8) K/uL Eos # (Auto) (0.0-0.7) K/uL Baso # (Auto) (0.0-0.1) K/uL Nucleated RBC % /100WBC Nucleated RBCs # K/uL INR 1.71 Sodium (136-148) mmol/L Potassium (3.5-5.1) mmol/L Chloride (98-107) mmol/L Carbon Dioxide (21.0-32.0) mmol/L BUN (7.0-18.0) mg/dL Creatinine (0.8-1.3) mg/dL Est Cr Clr Drug Dosing mL/min Estimated GFR (MDRD) ml/min Glucose (74-106) mg/dL Lactic Acid 1.9 (0.4-2.0) mmol/L Calcium (8.5-10.1) mg/dL Total Bilirubin (0.2-1.0) mg/dL AST (15-37) IU/L ALT (14-63) IU/L Alkaline Phosphatase (46-116) U/L Troponin I (0.000-0.056) ng/mL B-Natriuretic Peptide (<100) PG/ML Total Protein (6.4-8.2) g/dL Albumin (3.4-5.0) g/dL Globulin (2.6-4.0) g/dL Albumin/Globulin Ratio (0.9-1.6) Urine Color Urine Appearance Urine pH (5.0-8.0) Ur Specific Wells (1.001-1.035) Urine Protein (NEGATIVE) mg/dL Urine Glucose (UA) (NEGATIVE) mg/dL Urine Ketones (NEGATIVE) mg/dL Urine Occult Blood (NEGATIVE) Urine Nitrite (NEGATIVE) Urine Bilirubin (NEGATIVE) Urine Urobilinogen (<2.0) EU/dL Ur Leukocyte Esterase (NEGATIVE) SARS-CoV-2 RNA (PB) NEGATIVE (NEGATIVE) 08/13/20 Range/Units 09:19 WBC (4.0-11.0) K/uL RBC (4.50-5.90) M/uL Hgb (13.0-17.0) g/dL Hct (38.0-50.0) % MCV (80.0-98.0) fL MCH (27.0-32.0) pg MCHC (31.0-37.0) g/dL RDW Std Deviation (28.0-62.0) fl RDW Coeff of Sarah (11.0-15.0) % Plt Count (150-400) K/uL MPV (7.40-12.00) fL Neut % (Auto) (48.0-80.0) % Lymph % (Auto) (16.0-40.0) % Emmet % (Auto) (0.0-15.0) % Eos % (Auto) (0.0-7.0) % Baso % (Auto) (0.0-1.5) % Neut # (Auto) (1.4-5.7) K/uL Lymph # (Auto) (0.6-2.4) K/uL Emmet # (Auto) (0.0-0.8) K/uL Eos # (Auto) (0.0-0.7) K/uL Baso # (Auto) (0.0-0.1) K/uL Nucleated RBC % /100WBC Nucleated RBCs # K/uL INR Sodium (136-148) mmol/L Potassium (3.5-5.1) mmol/L Chloride (98-107) mmol/L Carbon Dioxide (21.0-32.0) mmol/L BUN (7.0-18.0) mg/dL Creatinine (0.8-1.3) mg/dL Est Cr Clr Drug Dosing mL/min Estimated GFR (MDRD) ml/min Glucose (74-106) mg/dL Lactic Acid (0.4-2.0) mmol/L Calcium (8.5-10.1) mg/dL Total Bilirubin (0.2-1.0) mg/dL AST (15-37) IU/L ALT (14-63) IU/L Alkaline Phosphatase (46-116) U/L Troponin I (0.000-0.056) ng/mL B-Natriuretic Peptide (<100) PG/ML Total Protein (6.4-8.2) g/dL Albumin (3.4-5.0) g/dL Globulin (2.6-4.0) g/dL Albumin/Globulin Ratio (0.9-1.6) Urine Color YELLOW Urine Appearance CLEAR Urine pH 6.0 (5.0-8.0) Ur Specific Wells 1.020 (1.001-1.035) Urine Protein NEGATIVE (NEGATIVE) mg/dL Urine Glucose (UA) NEGATIVE (NEGATIVE) mg/dL Urine Ketones NEGATIVE (NEGATIVE) mg/dL Urine Occult Blood NEGATIVE (NEGATIVE) Urine Nitrite NEGATIVE (NEGATIVE) Urine Bilirubin NEGATIVE (NEGATIVE) Urine Urobilinogen 0.2 (<2.0) EU/dL Ur Leukocyte Esterase NEGATIVE (NEGATIVE) SARS-CoV-2 RNA (PB) (NEGATIVE) Meds: Medications Generic Name Dose Route Start Last Admin Trade Name Freq PRN Reason Stop Dose Admin Ceftriaxone Sodium/Dextrose 1 50 mls @ 100 mls/hr 08/13/20 11:16 gm/ Premix IV 08/13/20 11:45 ONETIME ONE Clindamycin Phosphate 600 mg/ 54 mls @ 100 mls/hr 08/13/20 11:17 Sodium Chloride IV 08/13/20 11:49 ONETIME ONE Sodium Chloride 10 ml 08/13/20 07:54 08/13/20 08:00 Sodium Chloride 0.9% 10 Ml Syringe FLUSH 10 ml ASDIRECTED PRN Administration Keep Vein Open Sodium Chloride 2.5 ml 08/13/20 07:54 08/13/20 08:00 Sodium Chloride 0.9% 2.5 Ml Syringe FLUSH 2.5 ml ASDIRECTED PRN Administration Keep Vein Open Discontinued Medications Generic Name Dose Route Start Last Admin Trade Name Freq PRN Reason Stop Dose Admin Sodium Chloride 1,000 mls @ 999 mls/hr 08/13/20 07:54 08/13/20 08:00 Normal Saline IV 08/13/20 08:54 999 mls/hr .Bolus ONE Administration Iopamidol 100 ml 08/13/20 10:04 08/13/20 10:05 Iopamidol 755 Mg/Ml 500 Ml Multipack Bottle IVPUSH 08/13/20 10:05 100 ml ONETIME ONE Administration Departure - Departure Time of Disposition: 11:38 Disposition: Refer to Observation Condition: Good Clinical Impression: Pneumonia, COPD (chronic obstructive pulmonary disease) - Discharge Information Referrals: Rolan Nevarez MD [Primary Care Provider] - Forms: ED Department Discharge Sepsis Event Note (ED) - Evaluation Sepsis Screening Result: No Definite Risk - Focused Exam Vital Signs: Vital Signs Temp Pulse Resp BP Pulse Ox 08/13/20 09:00 96 18 131/76 92 L 08/13/20 07:35 98.7 F 98 18 137/86 95 - My Orders Last 24 Hours: My Active Orders 08/13/20 07:38 CULTURE BLOOD [BC] Stat 08/13/20 07:54 EKG Documentation Completion [RC] AM Sodium Chloride 0.9% [Saline Flush] 10 ml FLUSH ASDIRECTED PRN Sodium Chloride 0.9% [Saline Flush] 2.5 ml FLUSH ASDIRECTED PRN Blood Culture x2 Reflex Set [OM.PC] Stat Saline Lock Insert [OM.PC] Stat 08/13/20 08:05 CULTURE BLOOD [BC] Stat 08/13/20 11:16 cefTRIAXone [Rocephin in Dextrose,Iso-Osm 1 GM/50 ML] 1 gm Premix Bag 1 bag IV ONETIME 08/13/20 11:17 Clindamycin Phosphate [Cleocin] 600 mg Sodium Chloride 0.9% [Normal Saline] 50 ml IV ONETIME 08/13/20 11:31 Patient Status [ADT] Routine - Assessment/Plan Last 24 Hours: My Active Orders 08/13/20 07:38 CULTURE BLOOD [BC] Stat 08/13/20 07:54 EKG Documentation Completion [RC] AM Sodium Chloride 0.9% [Saline Flush] 10 ml FLUSH ASDIRECTED PRN Sodium Chloride 0.9% [Saline Flush] 2.5 ml FLUSH ASDIRECTED PRN Blood Culture x2 Reflex Set [OM.PC] Stat Saline Lock Insert [OM.PC] Stat 08/13/20 08:05 CULTURE BLOOD [BC] Stat 08/13/20 11:16 cefTRIAXone [Rocephin in Dextrose,Iso-Osm 1 GM/50 ML] 1 gm Premix Bag 1 bag IV ONETIME 08/13/20 11:17 Clindamycin Phosphate [Cleocin] 600 mg Sodium Chloride 0.9% [Normal Saline] 50 ml IV ONETIME 08/13/20 11:31 Patient Status [ADT] Routine
[2020-08-13 08:24] LABS: CARBON DIOXIDE,CO2 23.8 mmol/L (21.0-32.0); CHLORIDE,CL 104 mmol/L (98-107); GLUCOSE RANDOM 133 mg/dL (74-106); POTASSIUM,K 3.8 mmol/L (3.5-5.1); SODIUM,NA 142 mmol/L (136-148)
[2020-08-13 08:45] LABS: BLOOD UREA NITROGEN,BUN 32 mg/dL (7.0-18.0)
--- NOTE | 2020-08-13 09:05 | CR ---
For Patients: As a result of the Century Cures Act, medical imaging exams and procedure reports are released immediately into your electronic medical record. You may view this report before your referring provider. If you have questions, please contact your health care provider. HISTORY: Cough, dyspnea. TECHNIQUE: One view of the chest. COMPARISON: 05/13/2020. FINDINGS: Sternotomy. Left atrial appendage clipping. No change in small left pleural effusion. Increased platelike atelectasis at the left lung base and within the left midlung zone. Right lung appears clear of focal opacity. No pneumothorax. No change in cardiomegaly. IMPRESSION: 1. No change in small left pleural effusion. 2. Increased platelike atelectasis within the left lower lung zone. Dictated by Kyaw Frederick MD @ 08/13/2020 9:04:[address] Kyaw Frederick @ Aug 13 2020 9:04AM
[2020-08-13] MEDS ORDERED: Iopamidol 755 MG/ML 500 ML Multipack Bottle IVPUSH ONE (10:04)
--- NOTE | 2020-08-13 10:51 | CT ---
For Patients: As a result of the Century Cures Act, medical imaging exams and procedure reports are released immediately into your electronic medical record. You may view this report before your referring provider. If you have questions, please contact your health care provider. Indication: Dyspnea. History of a lung mass. Technique: Multiple contiguous axial images were obtained from the thoracic inlet through the upper abdomen after the intravenous administration of 100 cc Isovue 370. Please note that all CT scans at this facility use dose modulation, iterative reconstruction, and/or weight-based dosing when appropriate to reduce radiation dose to as low as reasonably achievable. Comparison: PET scan dated July 04, 2020. CT scan of the chest dated April 07, 2020. Findings: Biapical pleural scarring is identified. In the right upper lung, spiculated masses identified measuring 19 mm in size. This is more prominent on the CT scan today than when compared with the previous study from March 2020. This area did demonstrate moderate FDG activity on the recent PET-CT scan. Inferior to this is a no other pulmonary nodule measuring 9 mm in size. This is best seen on image number 67, series 3. This is now. Patchy ground-glass opacities are identified in the left upper left lower and right lower lobes. These are new since the previous CT scan in March. Small bilateral pleural effusions are identified, decreased in both the right and the left when compared with the previous CT scan from March. A right hilar lymph node is identified measuring 10 x 13 mm in size. No other mediastinal or hilar lymphadenopathy is identified. No pulmonary embolism is identified. Vascular calcifications are identified. The aorta is normal in caliber. The heart is enlarged. Median sternotomy wires are identified. The visualized portions of the liver, spleen, adrenals, and left kidney are grossly normal. No intrahepatic biliary ductal dilatation is identified. No hydronephrosis is seen. No lytic or blastic lesions of the spine are identified. Impression: No evidence of pulmonary embolism. Cardiomegaly. Spiculated mass identified in the right upper lobe. This has increased in size. A new pulmonary nodule is identified inferior to this also within the right upper lobe. These findings are worrisome for malignancy. Patchy ground-glass opacities are now identified in throughout the right lower lobe are also new patchy opacities within the lingula, left upper lobe, and left lower lobe. Decreased size of the bilateral pleural effusions. Please note that all CT scans at this facility use dose modulation, iterative reconstruction, and/or weight-based dosing when appropriate to reduce radiation dose to as low as reasonably achievable. Dictated by Hodan Webb MD @ 08/13/2020 10:49:[address] Hodan Webb @ Aug 13 2020 10:49AM
[2020-08-13] MEDS ORDERED: cefTRIAXone 1 GM in Premix Bag 1 BAG IV ONE (11:16)
[2020-08-13] MEDS ORDERED: Albuterol/Ipratropium 3.0-0.5 MG/3 ML Neb Soln NEB ONE (11:38)
[2020-08-13] MEDS ORDERED: Clindamycin Phosphate in D5W 900 MG in Premix Bag 1 BAG IV ONE ×2 (12:14)
--- NOTE | 2020-08-13 15:09 | PCM.HP.2 ---
H&P History of Present Illness - General Date of Service: 08/13/20 Admit Problem/Dx: Admission Diagnosis/Problem Admission Diagnosis/Problem Pneumonia - History of Present Illness Initial Comments - Free Text/Narative: 79 yo male with pmh of atrial fibrillation, CAD, and lung cancer. PAtient reports in March he had CABG following which he had recurrent pleural effusions in which he had a chest tube catheter placed for several months. Due to low output it was removed last week. He has recently been diagnosed with lung cancer by Deepak and is in the process of staging. He has an brain MRI scheduled for tomorrow and plans on getting his care referred to [facility]. He presented to the ER today with several day history of shortness of breath especially while laying down. He reports increase in edema of his hands and feet. He denies any fevers or chest pain. Patient reports he has been having a more productive cough of pinkish phlegm. Patient takes lasix daily and Dr. Kelly recently increased his lasix from 20 daily to 40 daily. He does not know if his has a history of heart failure. - Related Data Allergies/Adverse Reactions: Allergies Allergy/AdvReac Type Severity Reaction Status Date / Time No Known Allergies Allergy Verified 08/13/20 13:40 Home Medications: Home Meds Acetaminophen 325 mg PO Q6H PRN 08/13/20 [History] Albuterol Sulfate [Albuterol Sulfate HFA] 1 puff INH ASDIRECTED PRN 08/13/20 [Hi story] Aspirin 81 mg PO DAILY 08/13/20 [History] Budesonide/Glycopyr/Formoterol [Breztri Aerosphere Inhaler] 2 puff INH BID 08/13/20 [History] Celecoxib 200 mg PO DAILY 08/13/20 [History] Furosemide 40 mg PO DAILY 08/13/20 [History] LORazepam [Ativan] 0.5 mg PO Q8H PRN 08/13/20 [History] Metoprolol Succinate [Toprol Xl] 75 mg PO DAILY 08/13/20 [History] Rosuvastatin [Crestor] 20 mg PO DAILY 08/13/20 [History] Sennosides/Docusate Sodium [Senna-Docusate Sodium Tablet] 1 tab PO BID PRN 08/13/20 [History] Warfarin [Coumadin] 5 mg PO SUTUWETHSA 08/13/20 [History] allopurinoL [Zyloprim] 100 mg PO DAILY 08/13/20 [History] Warfarin [Coumadin] 2.5 mg PO MOFR 08/14/20 [History] Past Medical History Cardiovascular History: Reports: Afib, Bypass, CAD, Heart Failure, Hypertension Respiratory History: Reports: COPD, PE Musculoskeletal History: Reports: Gout Neurological History: Reports: TIA - Infectious Disease History Infectious Disease History: Reports: Chicken Pox - Past Surgical History Other Cardiovascular Surgeries/Procedures: CABG x4 Social & Family History - Family History Family Medical History: No Pertinent Family History - Tobacco Use Tobacco Use Status *Q: Former Tobacco User Used Tobacco, but Quit: Yes Month/Year Tobacco Last Used: 2010 Second Hand Smoke Exposure: No - Caffeine Use Caffeine Use: Reports: Coffee - Alcohol Use Days Per Week of Alcohol Use: 3 Number of Drinks Per Day: 1 Total Drinks Per Week: 3 - Recreational Drug Use Recreational Drug Use: No H&P Review of Systems - Review of Systems: Review Of Systems: Comprehensive ROS is negative, except as noted in HPI. Exam - Exam Exam: See Below - Vital Signs Vital Signs: Last Vital Signs Temp 37.1 C 08/13/20 07:35 Pulse 96 08/13/20 09:00 Resp 18 08/13/20 09:00 BP 119/68 08/13/20 13:20 Pulse Ox 92 L 08/13/20 09:00 Weight: 76.204 kg - Exam General: Alert, Oriented HEENT: Mucosa Moist & [place] Neck: Supple Lungs: Clear to Auscultation, Normal Respiratory Effort Cardiovascular: Regular Rate, Regular Rhythm GI/Abdominal Exam: Normal Bowel Sounds, Soft, Non-Tender Extremities: Non-Tender, No Pedal Edema Skin: Warm, Dry, Intact Neurological: No: Focal Deficit - Patient Data Lab Results Last 24 hrs: Laboratory Results - last 24 hr 08/13/20 08/13/20 08/13/20 Range/Units 07:38 07:38 07:38 WBC 12.76 H (4.0-11.0) K/uL RBC 4.42 L (4.50-5.90) M/uL Hgb 12.1 L (13.0-17.0) g/dL Hct 36.8 L (38.0-50.0) % MCV 83.3 (80.0-98.0) fL MCH 27.4 (27.0-32.0) pg MCHC 32.9 (31.0-37.0) g/dL RDW Std Deviation 48.1 (28.0-62.0) fl RDW Coeff of Sarah 16 H (11.0-15.0) % Plt Count 264 (150-400) K/uL MPV 9.60 (7.40-12.00) fL Neut % (Auto) 89.5 H (48.0-80.0) % Lymph % (Auto) 5.3 L (16.0-40.0) % [place] % (Auto) 4.4 (0.0-15.0) % Eos % (Auto) 0.6 (0.0-7.0) % Baso % (Auto) 0.2 (0.0-1.5) % Neut # (Auto) 11.4 H (1.4-5.7) K/uL Lymph # (Auto) 0.7 (0.6-2.4) K/uL [place] # (Auto) 0.6 (0.0-0.8) K/uL Eos # (Auto) 0.1 (0.0-0.7) K/uL Baso # (Auto) 0.0 (0.0-0.1) K/uL Nucleated RBC % 0.0 /100WBC Nucleated RBCs # 0 K/uL INR Sodium 142 (136-148) mmol/L Potassium 3.8 (3.5-5.1) mmol/L Chloride 104 (98-107) mmol/L Carbon Dioxide 23.8 (21.0-32.0) mmol/L BUN 32 H (7.0-18.0) mg/dL Creatinine 1.3 (0.8-1.3) mg/dL Est Cr Clr Drug Dosing 52.23 mL/min Estimated GFR (MDRD) 53.5 ml/min Glucose 133 H (74-106) mg/dL Lactic Acid (0.4-2.0) mmol/L Calcium 9.2 (8.5-10.1) mg/dL Total Bilirubin 0.6 (0.2-1.0) mg/dL AST 29 (15-37) IU/L ALT 27 (14-63) IU/L Alkaline Phosphatase 129 H (46-116) U/L Troponin I < 0.050 (0.000-0.056) ng/mL B-Natriuretic Peptide 262 H (<100) PG/ML Total Protein 7.5 (6.4-8.2) g/dL Albumin 3.5 (3.4-5.0) g/dL Globulin 4.0 (2.6-4.0) g/dL Albumin/Globulin Ratio 0.9 (0.9-1.6) Urine Color Urine Appearance Urine pH (5.0-8.0) Ur Specific [place] (1.001-1.035) Urine Protein (NEGATIVE) mg/dL Urine Glucose (UA) (NEGATIVE) mg/dL Urine Ketones (NEGATIVE) mg/dL Urine Occult Blood (NEGATIVE) Urine Nitrite (NEGATIVE) Urine Bilirubin (NEGATIVE) Urine Urobilinogen (<2.0) EU/dL Ur Leukocyte Esterase (NEGATIVE) SARS-CoV-2 RNA (PB) (NEGATIVE) 08/13/20 08/13/20 08/13/20 Range/Units 07:38 07:38 08:05 WBC (4.0-11.0) K/uL RBC (4.50-5.90) M/uL Hgb (13.0-17.0) g/dL Hct (38.0-50.0) % MCV (80.0-98.0) fL MCH (27.0-32.0) pg MCHC (31.0-37.0) g/dL RDW Std Deviation (28.0-62.0) fl RDW Coeff of Sarah (11.0-15.0) % Plt Count (150-400) K/uL MPV (7.40-12.00) fL Neut % (Auto) (48.0-80.0) % Lymph % (Auto) (16.0-40.0) % [place] % (Auto) (0.0-15.0) % Eos % (Auto) (0.0-7.0) % Baso % (Auto) (0.0-1.5) % Neut # (Auto) (1.4-5.7) K/uL Lymph # (Auto) (0.6-2.4) K/uL [place] # (Auto) (0.0-0.8) K/uL Eos # (Auto) (0.0-0.7) K/uL Baso # (Auto) (0.0-0.1) K/uL Nucleated RBC % /100WBC Nucleated RBCs # K/uL INR 1.71 Sodium (136-148) mmol/L Potassium (3.5-5.1) mmol/L Chloride (98-107) mmol/L Carbon Dioxide (21.0-32.0) mmol/L BUN (7.0-18.0) mg/dL Creatinine (0.8-1.3) mg/dL Est Cr Clr Drug Dosing mL/min Estimated GFR (MDRD) ml/min Glucose (74-106) mg/dL Lactic Acid 1.9 (0.4-2.0) mmol/L Calcium (8.5-10.1) mg/dL Total Bilirubin (0.2-1.0) mg/dL AST (15-37) IU/L ALT (14-63) IU/L Alkaline Phosphatase (46-116) U/L Troponin I (0.000-0.056) ng/mL B-Natriuretic Peptide (<100) PG/ML Total Protein (6.4-8.2) g/dL Albumin (3.4-5.0) g/dL Globulin (2.6-4.0) g/dL Albumin/Globulin Ratio (0.9-1.6) Urine Color Urine Appearance Urine pH (5.0-8.0) Ur Specific [place] (1.001-1.035) Urine Protein (NEGATIVE) mg/dL Urine Glucose (UA) (NEGATIVE) mg/dL Urine Ketones (NEGATIVE) mg/dL Urine Occult Blood (NEGATIVE) Urine Nitrite (NEGATIVE) Urine Bilirubin (NEGATIVE) Urine Urobilinogen (<2.0) EU/dL Ur Leukocyte Esterase (NEGATIVE) SARS-CoV-2 RNA (PB) NEGATIVE (NEGATIVE) 08/13/20 Range/Units 09:19 WBC (4.0-11.0) K/uL RBC (4.50-5.90) M/uL Hgb (13.0-17.0) g/dL Hct (38.0-50.0) % MCV (80.0-98.0) fL MCH (27.0-32.0) pg MCHC (31.0-37.0) g/dL RDW Std Deviation (28.0-62.0) fl RDW Coeff of Sarah (11.0-15.0) % Plt Count (150-400) K/uL MPV (7.40-12.00) fL Neut % (Auto) (48.0-80.0) % Lymph % (Auto) (16.0-40.0) % [place] % (Auto) (0.0-15.0) % Eos % (Auto) (0.0-7.0) % Baso % (Auto) (0.0-1.5) % Neut # (Auto) (1.4-5.7) K/uL Lymph # (Auto) (0.6-2.4) K/uL [place] # (Auto) (0.0-0.8) K/uL Eos # (Auto) (0.0-0.7) K/uL Baso # (Auto) (0.0-0.1) K/uL Nucleated RBC % /100WBC Nucleated RBCs # K/uL INR Sodium (136-148) mmol/L Potassium (3.5-5.1) mmol/L Chloride (98-107) mmol/L Carbon Dioxide (21.0-32.0) mmol/L BUN (7.0-18.0) mg/dL Creatinine (0.8-1.3) mg/dL Est Cr Clr Drug Dosing mL/min Estimated GFR (MDRD) ml/min Glucose (74-106) mg/dL Lactic Acid (0.4-2.0) mmol/L Calcium (8.5-10.1) mg/dL Total Bilirubin (0.2-1.0) mg/dL AST (15-37) IU/L ALT (14-63) IU/L Alkaline Phosphatase (46-116) U/L Troponin I (0.000-0.056) ng/mL B-Natriuretic Peptide (<100) PG/ML Total Protein (6.4-8.2) g/dL Albumin (3.4-5.0) g/dL Globulin (2.6-4.0) g/dL Albumin/Globulin Ratio (0.9-1.6) Urine Color YELLOW Urine Appearance CLEAR Urine pH 6.0 (5.0-8.0) Ur Specific [place] 1.020 (1.001-1.035) Urine Protein NEGATIVE (NEGATIVE) mg/dL Urine Glucose (UA) NEGATIVE (NEGATIVE) mg/dL Urine Ketones NEGATIVE (NEGATIVE) mg/dL Urine Occult Blood NEGATIVE (NEGATIVE) Urine Nitrite NEGATIVE (NEGATIVE) Urine Bilirubin NEGATIVE (NEGATIVE) Urine Urobilinogen 0.2 (<2.0) EU/dL Ur Leukocyte Esterase NEGATIVE (NEGATIVE) SARS-CoV-2 RNA (PB) (NEGATIVE) Result Diagrams: 08/14/20 05:05 08/14/20 05:05 Sepsis Event Note - Evaluation Sepsis Screening Result: Severe Sepsis Risk - Focused Exam Vital Signs: Vital Signs Temp Pulse Resp BP Pulse Ox 08/13/20 13:20 119/68 08/13/20 12:21 126/75 08/13/20 11:09 124/74 08/13/20 10:09 133/78 08/13/20 09:00 96 18 131/76 92 L 08/13/20 07:35 37.1 C 98 18 137/86 95 Problem List Initiated/Reviewed/Updated: Yes Orders Last 24hrs: Active Orders 24 hr Category Date Time Status Patient Status [ADT] Routine ADT 08/13/20 11:31 Active RT Aerosol Therapy [RC] ASDIRECTED Care 08/13/20 11:39 Active Telemetry Monitoring [Cardiac Monitoring] [RC] Q8H Care 08/13/20 11:40 Active CULTURE BLOOD [BC] Stat Lab 08/13/20 07:38 Received CULTURE BLOOD [BC] Stat Lab 08/13/20 08:05 Received INR,PT,PROTHROMBIN TIME [COAG] AM Lab 08/14/20 05:11 Ordered INR,PT,PROTHROMBIN TIME [COAG] AM Lab 08/15/20 05:11 Ordered INR,PT,PROTHROMBIN TIME [COAG] AM Lab 08/16/20 05:11 Ordered Acetaminophen [TylenoL] Med 08/13/20 15:00 Ordered 325 mg PO Q6H PRN Albuterol Sulfate Med 08/13/20 15:00 Ordered 1 puff INH ASDIRECTED PRN Aspirin Med 08/14/20 09:00 Ordered 81 mg PO DAILY Budesonide/Glycopyr/Formoterol [Breztri Aerosphere Med 08/13/20 21:00 Ordered Inhaler] 2 puff INH BID Docusate Sodium/Sennosides [Senna Plus] Med 08/13/20 15:00 Ordered 1 tab PO BID PRN Metoprolol Succinate [Toprol XL] Med 08/14/20 09:00 Ordered 50 mg PO DAILY Rosuvastatin [Crestor] Med 08/14/20 09:00 Ordered 20 mg PO DAILY Sodium Chloride 0.9% [Saline Flush] Med 08/13/20 07:54 Active 10 ml FLUSH ASDIRECTED PRN Sodium Chloride 0.9% [Saline Flush] Med 08/13/20 07:54 Active 2.5 ml FLUSH ASDIRECTED PRN Warfarin Dosing [Coumadin Ask] Med 08/13/20 15:02 Once 1 each PO ONETIME ONE Warfarin [Coumadin] Med 08/14/20 09:00 Ordered 5 mg PO DAILY allopurinoL [Zyloprim] Med 08/14/20 09:00 Ordered 100 mg PO DAILY Blood Culture x2 Reflex Set [OM.PC] Stat Oth 08/13/20 07:54 Ordered Saline Lock Insert [OM.PC] Stat Oth 08/13/20 07:54 Ordered Medication Orders Acetaminophen (Acetaminophen 325 Mg Tab) 325 mg PO Q6H PRN PRN Reason: Pain Allopurinol (Allopurinol 100 Mg Tab) 100 mg PO DAILY ZANDER Aspirin (Aspirin 81 Mg Tab.Chew) 81 mg PO DAILY ZANDER Metoprolol Succinate (Metoprolol Succinate 50 Mg Tab.Er) 50 mg PO DAILY ZANDER Non-Formulary Medication (Albuterol Sulfate) 1 puff INH ASDIRECTED PRN PRN Reason: Shortness of Breath Non-Formulary Medication (Budesonide/Glycopyr/Formoterol [Breztri Aerosphere Inhaler]) 2 puff INH BID ZANDER Rosuvastatin Calcium (Rosuvastatin 10 Mg Tab) 20 mg PO DAILY ZANDER Senna/Docusate Sodium (Docusate Sodium/Sennosides 50-8.6 Mg Tab) 1 tab PO BID PRN PRN Reason: Constipation Sodium Chloride (Sodium Chloride 0.9% 10 Ml Syringe) 10 ml FLUSH ASDIRECTED PRN PRN Reason: Keep Vein Open Last Admin: 08/13/20 08:00 Dose: 10 ml Documented by: [id number] Sodium Chloride (Sodium Chloride 0.9% 2.5 Ml Syringe) 2.5 ml FLUSH ASDIRECTED PRN PRN Reason: Keep Vein Open Last Admin: 08/13/20 08:00 Dose: 2.5 ml Documented by: [id number] Warfarin Sodium (Warfarin 5 Mg Tab) 5 mg PO DAILY ZANDER Assessment/Plan Comment:: 79 yo male admitted for CHF exacerbation and possible pneumonia CHF exacerbation: will give IV lasix, consider echocardiogram tomorrow Pneumonia: Rocephin and Azithromycin Afib: metoprolol and Coumadin
[2020-08-13] MEDS: Furosemide 40 MG/4 ML VIAL IVPUSH SCH (15:33)
[2020-08-13] MEDS: Azithromycin 500 MG in Sodium Chloride 0.9% 250 ML IV SCH (15:35)
[2020-08-13] MEDS ORDERED: Albuterol 6.7 GM Inhaler INH PRN (16:44)
[2020-08-13] MEDS: Calcium Carbonate 500 MG Tab.Chew PO PRN (16:56)
[2020-08-13] MEDS ORDERED: Non-Formulary Medication 1 Each (Budesonide/Glycopyr/Formoterol [Breztri Aerosphere Inhale INH SCH (21:00)
[2020-08-13] MEDS: Acetaminophen 325 MG Tab PO PRN (22:03)
[2020-08-13] MEDS ORDERED: FORMOTEROL INH ONE ×2 (22:45→23:45)
[2020-08-13] MEDS ORDERED: GLYCOPYR INH ONE ×2 (22:45→23:45)
[2020-08-13] MEDS ORDERED: BUDESONIDE INH ONE ×2 (22:45→23:45)
[2020-08-14] MEDS ORDERED: GLYCOPYR INH ONE (00:30)
[2020-08-14] MEDS ORDERED: BUDESONIDE INH ONE (00:30)
[2020-08-14] MEDS ORDERED: FORMOTEROL INH ONE (00:30)
[2020-08-14] MEDS ORDERED: Sodium Chloride 0.9% 2.5 ML Syringe FLUSH PRN (07:57)
[2020-08-14 08:09] LABS: POTASSIUM,K 3.7 mmol/L (3.5-5.1)
[2020-08-14] MEDS ORDERED: Magnesium Sulfate/Water 2 GM in Premix Bag 1 BAG IV ONE (08:30)
[2020-08-14] MEDS: Allopurinol 100 MG Tab PO SCH (08:50)
[2020-08-14] MEDS: Aspirin 81 MG Tab.Chew PO SCH (08:51)
[2020-08-14] MEDS: Rosuvastatin 10 MG Tab PO SCH (08:51)
[2020-08-14] MEDS: Furosemide 40 MG/4 ML VIAL IVPUSH SCH (08:53)
[2020-08-14] MEDS ORDERED: Metoprolol Succinate 50 MG Tab.ER PO SCH (09:00)
[2020-08-14] MEDS ORDERED: FORMOTEROL INH SCH (09:00)
[2020-08-14] MEDS ORDERED: BUDESONIDE INH SCH (09:00)
[2020-08-14] MEDS ORDERED: GLYCOPYR INH SCH (09:00)
[2020-08-14] MEDS ORDERED: Metoprolol Succinate 25 MG Tab.ER PO ONE (09:44)
[2020-08-14] MEDS: BUDESONIDE INH SCH ×2 (10:24→21:45)
[2020-08-14] MEDS: FORMOTEROL INH SCH ×2 (10:24→21:45)
[2020-08-14] MEDS: GLYCOPYR INH SCH ×2 (10:24→21:45)
[2020-08-14] MEDS ORDERED: Albuterol 8 GM Inhaler INH PRN (10:38)
[2020-08-14] MEDS: Piperacillin/Tazobactam 4.5 GM in Sodium Chloride 0.9% 100 ML IV SCH ×3 (11:50→23:53)
--- NOTE | 2020-08-14 11:51 | PCM.PN ---
- General Info Date of Service: 08/14/20 Admission Dx/Problem (Free Text): Admission Diagnosis/Problem Admission Diagnosis/Problem Pneumonia Subjective Update: Reports he is feeling somewhat improved. Continues to have mild shortness of breath along with productive cough with now green mucus. Davis frothy mucus has now resolved. He denies any chest pain. Feels fatigued and weak. Has concerns regarding follow-up with oncologist and brain MRI today. Functional Status: Reports: Pain Controlled, Tolerating Diet, Ambulating, Urinating - Review of Systems General: Reports: Weakness, Fatigue Pulmonary: Reports: Shortness of Breath, Cough, Sputum Cardiovascular: Denies: Chest Pain Gastrointestinal: Reports: No Symptoms. Denies: Abdominal Pain, Nausea, Vomiting Genitourinary: Reports: No Symptoms. Denies: Dysuria, Frequency Musculoskeletal: Reports: No Symptoms Skin: Reports: No Symptoms Neurological: Reports: No Symptoms Psychiatric: Reports: No Symptoms - Patient Data Vitals - Most Recent: Last Vital Signs Temp 98.1 F 08/14/20 08:52 Pulse 110 H 08/14/20 10:31 Resp 14 08/14/20 08:52 BP 117/62 08/14/20 10:31 Pulse Ox 94 L 08/14/20 08:52 Weight - Most Recent: 74.253 kg I&O - Last 24 Hours: Intake & Output 08/13/20 08/14/20 08/14/20 22:59 06:59 14:59 Intake Total 250 700 Output Total 800 1100 Balance -550 -400 Lab Results Last 24 Hours: Laboratory Results - last 24 hr 08/14/20 08/14/20 08/14/20 Range/Units 05:05 05:05 05:05 WBC 21.71 H (4.0-11.0) K/uL RBC 4.01 L (4.50-5.90) M/uL Hgb 11.0 L (13.0-17.0) g/dL Hct 33.2 L (38.0-50.0) % MCV 82.8 (80.0-98.0) fL MCH 27.4 (27.0-32.0) pg MCHC 33.1 (31.0-37.0) g/dL RDW Std Deviation 48.0 (28.0-62.0) fl RDW Coeff of Sarah 16 H (11.0-15.0) % Plt Count 221 (150-400) K/uL MPV 9.80 (7.40-12.00) fL Neut % (Auto) 90.8 H (48.0-80.0) % Lymph % (Auto) 4.7 L (16.0-40.0) % Barron % (Auto) 4.0 (0.0-15.0) % Eos % (Auto) 0.4 (0.0-7.0) % Baso % (Auto) 0.1 (0.0-1.5) % Neut # (Auto) 19.7 H (1.4-5.7) K/uL Lymph # (Auto) 1.0 (0.6-2.4) K/uL Barron # (Auto) 0.9 H (0.0-0.8) K/uL Eos # (Auto) 0.1 (0.0-0.7) K/uL Baso # (Auto) 0.0 (0.0-0.1) K/uL Nucleated RBC % 0.0 /100WBC Nucleated RBCs # 0 K/uL INR 2.76 Sodium 139 (136-148) mmol/L Potassium 3.7 (3.5-5.1) mmol/L Chloride 100 (98-107) mmol/L Carbon Dioxide 26.0 (21.0-32.0) mmol/L BUN 25 H (7.0-18.0) mg/dL Creatinine 1.3 (0.8-1.3) mg/dL Est Cr Clr Drug Dosing 44.49 mL/min Estimated GFR (MDRD) 53.5 ml/min Glucose 115 H (74-106) mg/dL Calcium 8.8 (8.5-10.1) mg/dL Magnesium 1.7 L (1.8-2.4) mg/dL Rey Results Last 24 Hours: Microbiology 08/13/20 08:05 Aerobic Blood Culture - Preliminary Blood - Venous - Lab Draw NO GROWTH AFTER 1 DAY Anaerobic Blood Culture - Preliminary NO GROWTH AFTER 1 DAY 08/13/20 07:38 Aerobic Blood Culture - Preliminary Blood - Venous NO GROWTH AFTER 1 DAY Anaerobic Blood Culture - Preliminary NO GROWTH AFTER 1 DAY Med Orders - Current: Current Medications Acetaminophen (Acetaminophen 325 Mg Tab) 325 mg PO Q6H PRN PRN Reason: Pain Last Admin: 08/13/20 22:03 Dose: 325 mg Documented by: Albuterol (Albuterol 8 Gm Inhaler) 0 gm INH Q6H PRN PRN Reason: Dyspnea Allopurinol (Allopurinol 100 Mg Tab) 100 mg PO DAILY [facility] Last Admin: 08/14/20 08:50 Dose: 100 mg Documented by: Aspirin (Aspirin 81 Mg Tab.Chew) 81 mg PO DAILY [facility] Last Admin: 08/14/20 08:51 Dose: 81 mg Documented by: Calcium Carbonate/Glycine (Calcium Carbonate 500 Mg Tab.Chew) 500 mg PO TID PRN PRN Reason: Indigestion Last Admin: 08/13/20 16:56 Dose: 500 mg Documented by: Furosemide (Furosemide 40 Mg/4 Ml Vial) 40 mg IVPUSH DAILY [facility] Last Admin: 08/14/20 08:53 Dose: 40 mg Documented by: Azithromycin 500 mg/ Sodium (Chloride) 250 mls @ 250 mls/hr IV Q24H [facility] Last Admin: 08/13/20 15:35 Dose: 250 mls/hr Documented by: Magnesium Sulfate 2 gm/ Premix 50 mls @ 12.5 mls/hr IV ONETIME ONE Stop: 08/14/20 12:29 Last Admin: 08/14/20 08:49 Dose: 12.5 mls/hr Documented by: Piperacillin Sod/Tazobactam (Sod 4.5 gm/ Sodium Chloride) 100 mls @ 100 mls/hr IV Q6H [facility] Last Admin: 08/14/20 11:50 Dose: 100 mls/hr Documented by: Metoprolol Succinate (Metoprolol Succinate 25 Mg Tab.Er) 75 mg PO DAILY [facility] Budesonide/Glycopyr/Formoterol [[facility] Aerosphere Own Med 0 each INH BIDRT [facility] Last Admin: 08/14/20 10:24 Dose: 1 each Documented by: Rosuvastatin Calcium (Rosuvastatin 10 Mg Tab) 20 mg PO DAILY [facility] Last Admin: 08/14/20 08:51 Dose: 20 mg Documented by: Senna/Docusate Sodium (Docusate Sodium/Sennosides 50-8.6 Mg Tab) 1 tab PO BID PRN PRN Reason: Constipation Last Admin: 08/13/20 15:38 Dose: 1 tab Documented by: Sodium Chloride (Sodium Chloride 0.9% 2.5 Ml Syringe) 2.5 ml FLUSH ASDIRECTED PRN PRN Reason: Keep Vein Open Warfarin Sodium (Warfarin Ask Dosing) 1 each PO DAILY@1400 [facility] Warfarin Sodium (Warfarin 2.5 Mg Tab) 2.5 mg PO DAILY@1400 [facility] Stop: 08/14/20 15:00 Discontinued Medications Albuterol (Albuterol 6.7 Gm Inhaler) 0 gm INH Q6H PRN PRN Reason: Dyspnea Albuterol/Ipratropium (Albuterol/Ipratropium 3.0-0.5 Mg/3 Ml Neb Soln) 3 ml NEB ONETIME ONE Stop: 08/13/20 11:39 Last Admin: 08/13/20 13:04 Dose: 3 ml Documented by: Sodium Chloride (Normal Saline) 1,000 mls @ 999 mls/hr IV .Bolus ONE Stop: 08/13/20 08:54 Last Admin: 08/13/20 08:00 Dose: 999 mls/hr Documented by: Ceftriaxone Sodium/Dextrose 1 (gm/ Premix) 50 mls @ 100 mls/hr IV ONETIME ONE Stop: 08/13/20 11:45 Last Admin: 08/13/20 12:16 Dose: 100 mls/hr Documented by: Clindamycin Phosphate 600 mg/ (Sodium Chloride) 54 mls @ 100 mls/hr IV ONETIME ONE Stop: 08/13/20 11:49 Last Admin: 08/13/20 13:08 Dose: Not Given Documented by: Clindamycin Phosphate 900 mg/ (Premix) 50 mls @ 100 mls/hr IV ONETIME ONE Stop: 08/13/20 12:43 Last Admin: 08/13/20 13:06 Dose: 100 mls/hr Documented by: Ceftriaxone Sodium/Dextrose 1 (gm/ Premix) 50 mls @ 100 mls/hr IV Q24H [facility] Iopamidol (Iopamidol 755 Mg/Ml 500 Ml Multipack Bottle) 100 ml IVPUSH ONETIME ONE Stop: 08/13/20 10:05 Last Admin: 08/13/20 10:05 Dose: 100 ml Documented by: Metoprolol Succinate (Metoprolol Succinate 50 Mg Tab.Er) 50 mg PO DAILY [facility] Last Admin: 08/14/20 08:50 Dose: 50 mg Documented by: Metoprolol Succinate (Metoprolol Succinate 25 Mg Tab.Er) 25 mg PO ONETIME ONE Stop: 08/14/20 09:45 Last Admin: 08/14/20 10:31 Dose: 25 mg Documented by: Non-Formulary Medication (Budesonide/Glycopyr/Formoterol [Breztri Aerosphere Inhaler]) 2 puff INH BID [facility] Budesonide/Glycopyr/Formoterol [Breztri Aerosphere Own Med 2 puff INH BID [facility] Last Admin: 08/14/20 10:45 Dose: Not Given Documented by: Budesonide/Glycopyr/Formoterol [Breztri Aerosphere Own Med 2 puff INH NOW ONE Stop: 08/13/20 22:46 Last Admin: 08/14/20 00:54 Dose: Not Given Documented by: Budesonide/Glycopyr/Formoterol [Breztri Aerosphere Own Med 2 puff INH NOW ONE Stop: 08/13/20 23:46 Last Admin: 08/14/20 00:54 Dose: Not Given Documented by: Budesonide/Glycopyr/Formoterol [Breztri Aerosphere Own Med 2 puff INH NOW ONE Stop: 08/14/20 00:31 Last Admin: 08/14/20 00:53 Dose: 2 puff Documented by: Sodium Chloride (Sodium Chloride 0.9% 10 Ml Syringe) 10 ml FLUSH ASDIRECTED PRN PRN Reason: Keep Vein Open Last Admin: 08/13/20 08:00 Dose: 10 ml Documented by: Sodium Chloride (Sodium Chloride 0.9% 2.5 Ml Syringe) 2.5 ml FLUSH ASDIRECTED PRN PRN Reason: Keep Vein Open Last Admin: 08/13/20 08:00 Dose: 2.5 ml Documented by: Warfarin Sodium (Warfarin Ask Dosing) 1 each PO ONETIME ONE Stop: 08/13/20 15:03 Last Admin: 08/13/20 16:42 Dose: Not Given Documented by: - Exam Quality Assessment: DVT Prophylaxis. No: Supplemental Oxygen General: Alert, Oriented HEENT: Pupils Equal Lungs: Normal Respiratory Effort, Decreased Breath Sounds, Crackles (Upper left lobe) Cardiovascular: Regular Rate, Irregular Rhythm GI/Abdominal Exam: Normal Bowel Sounds, Soft, Non-Tender Extremities: Normal Inspection, Normal Range of Motion, Non-Tender, No Pedal Edema Skin: Warm, Dry, Intact Neurological: No New Focal Deficit Psy/Mental Status: Alert, Normal Affect, Normal Mood - Patient Data Lab Results Last 24 hrs: Laboratory Results - last 24 hr 08/14/20 08/14/20 08/14/20 Range/Units 05:05 05:05 05:05 WBC 21.71 H (4.0-11.0) K/uL RBC 4.01 L (4.50-5.90) M/uL Hgb 11.0 L (13.0-17.0) g/dL Hct 33.2 L (38.0-50.0) % MCV 82.8 (80.0-98.0) fL MCH 27.4 (27.0-32.0) pg MCHC 33.1 (31.0-37.0) g/dL RDW Std Deviation 48.0 (28.0-62.0) fl RDW Coeff of Sarah 16 H (11.0-15.0) % Plt Count 221 (150-400) K/uL MPV 9.80 (7.40-12.00) fL Neut % (Auto) 90.8 H (48.0-80.0) % Lymph % (Auto) 4.7 L (16.0-40.0) % Barron % (Auto) 4.0 (0.0-15.0) % Eos % (Auto) 0.4 (0.0-7.0) % Baso % (Auto) 0.1 (0.0-1.5) % Neut # (Auto) 19.7 H (1.4-5.7) K/uL Lymph # (Auto) 1.0 (0.6-2.4) K/uL Barron # (Auto) 0.9 H (0.0-0.8) K/uL Eos # (Auto) 0.1 (0.0-0.7) K/uL Baso # (Auto) 0.0 (0.0-0.1) K/uL Nucleated RBC % 0.0 /100WBC Nucleated RBCs # 0 K/uL INR 2.76 Sodium 139 (136-148) mmol/L Potassium 3.7 (3.5-5.1) mmol/L Chloride 100 (98-107) mmol/L Carbon Dioxide 26.0 (21.0-32.0) mmol/L BUN 25 H (7.0-18.0) mg/dL Creatinine 1.3 (0.8-1.3) mg/dL Est Cr Clr Drug Dosing 44.49 mL/min Estimated GFR (MDRD) 53.5 ml/min Glucose 115 H (74-106) mg/dL Calcium 8.8 (8.5-10.1) mg/dL Magnesium 1.7 L (1.8-2.4) mg/dL Result Diagrams: 08/14/20 05:05 08/14/20 05:05 Rey Results Last 24 hrs: Microbiology 08/13/20 08:05 Aerobic Blood Culture - Preliminary Blood - Venous - Lab Draw NO GROWTH AFTER 1 DAY Anaerobic Blood Culture - Preliminary NO GROWTH AFTER 1 DAY 08/13/20 07:38 Aerobic Blood Culture - Preliminary Blood - Venous NO GROWTH AFTER 1 DAY Anaerobic Blood Culture - Preliminary NO GROWTH AFTER 1 DAY Sepsis Event Note - Evaluation Sepsis Screening Result: Severe Sepsis Risk - Focused Exam Vital Signs: Vital Signs Temp Pulse Pulse Resp BP BP Pulse Ox 08/14/20 10:31 110 H 117/62 08/14/20 08:52 98.1 F 110 H 14 117/62 94 L 08/14/20 08:50 110 H 117/62 08/14/20 04:56 98.5 F 98 19 110/68 94 L 08/14/20 01:00 98.4 F 98 19 107/63 93 L - Problem List & Annotations (1) Community acquired pneumonia SNOMED Code(s): 275785650 Code(s): J18.9 - PNEUMONIA, UNSPECIFIED ORGANISM Status: Acute Current Visit: Yes (2) Congestive heart failure SNOMED Code(s): 53638043 Code(s): I50.9 - HEART FAILURE, UNSPECIFIED Status: Acute Current Visit: No Qualifiers: Heart failure type: unspecified Heart failure chronicity: unspecified Qualified Code(s): I50.9 - Heart failure, unspecified (3) Lung cancer SNOMED Code(s): 532896566 Code(s): C34.90 - MALIGNANT NEOPLASM OF UNSP PART OF UNSP BRONCHUS OR LUNG Status: Chronic Current Visit: Yes Qualifiers: Laterality: left Lung location: upper lobe of lung Qualified Code(s): C34.12 - Malignant neoplasm of upper lobe, left bronchus or lung (4) Pleural effusion SNOMED Code(s): 70905987 Code(s): J90 - PLEURAL EFFUSION, NOT ELSEWHERE CLASSIFIED Status: Chronic Current Visit: No (5) Atrial fibrillation SNOMED Code(s): 25658812 Code(s): I48.91 - UNSPECIFIED ATRIAL FIBRILLATION Status: Chronic Current Visit: Yes (6) Anticoagulation adequate SNOMED Code(s): 119016664, 103175556 Code(s): Z79.01 - NURSING HOME (CURRENT) USE OF ANTICOAGULANTS Status: Chronic Current Visit: Yes - Problem List Review Problem List Initiated/Reviewed/Updated: Yes - My Orders Last 24 Hours: My Active Orders 08/14/20 07:57 Sodium Chloride 0.9% [Saline Flush] 2.5 ml FLUSH ASDIRECTED PRN Saline Lock Insert [OM.PC] Routine 08/14/20 07:58 Intake and Output Strict [RC] Q12H Vital Signs [RC] Q4H 08/14/20 08:30 Magnesium Sulfate/Water [Magnesium Sulfate in Water 2 GM/50 ML] 2 gm Premix Bag 1 bag IV ONETIME 08/14/20 11:15 Piperacillin/Tazobactam [Piperacil-Tazobact] 4.5 gm Sodium Chloride 0.9% [Normal Saline] 100 ml IV Q6H 08/14/20 11:25 Patient Status [ADT] Stat 08/14/20 11:51 Echo Comp wo Cont [US] Urgent 08/15/20 09:00 Metoprolol Succinate [Toprol XL] 75 mg PO DAILY - Plan Plan:: 79 yo male admitted for CHF exacerbation and possible pneumonia 1. CHF exacerbation -Continue IV lasix, may consider second dose this evening we will continue to monitor I's and O's -Obtain echocardiogram today -Strict I's and O's, daily weights, low-sodium diet and 2 L fluid restriction. -Monitor on telemetry 2. Community-acquired pneumonia: -Leukocytosis worsened today. -We will discontinue Rocephin add Zosyn to and Azithromycin to broaden coverage at this point -Obtain sputum culture, blood cultures negative x1 day -Recheck lab work in the morning we will change to inpatient due to increasing antibiotic coverage and greater than 2 midnight stay suspected. 3. Afib: -Continue metoprolol and Coumadin 4. Lung cancer -Has initial evaluation with oncologist in [place] [facility] on Friday. Will consider arranging appointment in [place] if possible will discuss with oncology team. -Has outpatient MRI scheduled today of brain. Will need to reschedule at this point patient and aware and are okay with this. VTE prophylaxis: Coumadin CODE STATUS: DNR/DNI Dispo: We will make inpatient today as stable likely be over 2 midnights. Broadening antibiotic coverage.
[2020-08-14] MEDS ORDERED: cefTRIAXone 1 GM in Sodium Chloride 0.9% 50 ML IV SCH (12:00)
[2020-08-14] MEDS ORDERED: cefTRIAXone 1 GM in Premix Bag 1 BAG IV SCH (12:00)
[2020-08-14] MEDS ORDERED: Warfarin 2.5 MG Tab PO SCH (14:00)
[2020-08-14] MEDS: Azithromycin 500 MG in Sodium Chloride 0.9% 250 ML IV SCH (14:15)
[2020-08-14] MEDS: Acetaminophen 325 MG Tab PO PRN (21:45)
[2020-08-15] MEDS: Piperacillin/Tazobactam 4.5 GM in Sodium Chloride 0.9% 100 ML IV SCH ×4 (05:31→23:22)
[2020-08-15] MEDS: GLYCOPYR INH SCH ×2 (05:43→20:33)
[2020-08-15] MEDS: FORMOTEROL INH SCH ×2 (05:43→20:33)
[2020-08-15] MEDS: BUDESONIDE INH SCH ×2 (05:43→20:33)
[2020-08-15] MEDS: Metoprolol Succinate 25 MG Tab.ER PO SCH (08:22)
[2020-08-15] MEDS: Allopurinol 100 MG Tab PO SCH (08:23)
[2020-08-15] MEDS: Rosuvastatin 10 MG Tab PO SCH (08:23)
[2020-08-15] MEDS: Furosemide 40 MG/4 ML VIAL IVPUSH SCH (08:23)
[2020-08-15] MEDS: Aspirin 81 MG Tab.Chew PO SCH (08:23)
--- NOTE | 2020-08-15 08:23 | PCM.PN ---
- General Info Date of Service: 08/15/20 Admission Dx/Problem (Free Text): Admission Diagnosis/Problem Admission Diagnosis/Problem Pneumonia Subjective Update: Reports feeling improved today. Denies any chest pain. Reports that shortness of breath is approved. Reports he is bringing up significant amount of green sputum yesterday this has decreased in consistency and thickness as well as. He has been having home with . No complaints today. Functional Status: Reports: Pain Controlled, Tolerating Diet, Ambulating, Urinating - Review of Systems Pulmonary: Reports: Shortness of Breath (Improving), Cough (Improving), Sputum (Improving) Cardiovascular: Reports: Dyspnea on Exertion (Mild). Denies: Chest Pain, Palpitations Gastrointestinal: Reports: No Symptoms. Denies: Abdominal Pain, Nausea, Vomiting Genitourinary: Reports: No Symptoms. Denies: Dysuria, Frequency Musculoskeletal: Reports: No Symptoms Skin: Reports: No Symptoms Neurological: Reports: No Symptoms Psychiatric: Reports: No Symptoms - Patient Data Vitals - Most Recent: Last Vital Signs Temp 97.5 F 08/15/20 07:42 Pulse 95 08/15/20 07:42 Resp 20 08/15/20 07:42 BP 139/76 08/15/20 07:42 Pulse Ox 95 08/15/20 07:42 Weight - Most Recent: 74.888 kg I&O - Last 24 Hours: Intake & Output 08/14/20 08/15/20 08/15/20 22:59 06:59 14:59 Intake Total 1000 350 Output Total 900 800 Balance 100 -450 Lab Results Last 24 Hours: Laboratory Results - last 24 hr 08/14/20 08/15/20 08/15/20 Range/Units 05:05 05:45 05:45 WBC 21.71 H 12.59 H (4.0-11.0) K/uL RBC 4.01 L 4.08 L (4.50-5.90) M/uL Hgb 11.0 L 11.2 L (13.0-17.0) g/dL Hct 33.2 L 33.6 L (38.0-50.0) % MCV 82.8 82.4 (80.0-98.0) fL MCH 27.4 27.5 (27.0-32.0) pg MCHC 33.1 33.3 (31.0-37.0) g/dL RDW Std Deviation 48.0 48.3 (28.0-62.0) fl RDW Coeff of Sarah 16 H 16 H (11.0-15.0) % Plt Count 221 207 (150-400) K/uL MPV 9.80 9.70 (7.40-12.00) fL Neut % (Auto) 90.8 H 83.0 H (48.0-80.0) % Lymph % (Auto) 4.7 L 9.5 L (16.0-40.0) % [place] % (Auto) 4.0 6.2 (0.0-15.0) % Eos % (Auto) 0.4 1.1 (0.0-7.0) % Baso % (Auto) 0.1 0.2 (0.0-1.5) % Neut # (Auto) 19.7 H 10.5 H (1.4-5.7) K/uL Lymph # (Auto) 1.0 1.2 (0.6-2.4) K/uL [place] # (Auto) 0.9 H 0.8 (0.0-0.8) K/uL Eos # (Auto) 0.1 0.1 (0.0-0.7) K/uL Baso # (Auto) 0.0 0.0 (0.0-0.1) K/uL Nucleated RBC % 0.0 0.0 /100WBC Nucleated RBCs # 0 0 K/uL INR 2.09 Sodium (136-148) mmol/L Potassium (3.5-5.1) mmol/L Chloride (98-107) mmol/L Carbon Dioxide (21.0-32.0) mmol/L BUN (7.0-18.0) mg/dL Creatinine (0.8-1.3) mg/dL Est Cr Clr Drug Dosing mL/min Estimated GFR (MDRD) ml/min Glucose (74-106) mg/dL Calcium (8.5-10.1) mg/dL Magnesium (1.8-2.4) mg/dL 08/15/20 Range/Units 05:45 WBC (4.0-11.0) K/uL RBC (4.50-5.90) M/uL Hgb (13.0-17.0) g/dL Hct (38.0-50.0) % MCV (80.0-98.0) fL MCH (27.0-32.0) pg MCHC (31.0-37.0) g/dL RDW Std Deviation (28.0-62.0) fl RDW Coeff of Sarah (11.0-15.0) % Plt Count (150-400) K/uL MPV (7.40-12.00) fL Neut % (Auto) (48.0-80.0) % Lymph % (Auto) (16.0-40.0) % [place] % (Auto) (0.0-15.0) % Eos % (Auto) (0.0-7.0) % Baso % (Auto) (0.0-1.5) % Neut # (Auto) (1.4-5.7) K/uL Lymph # (Auto) (0.6-2.4) K/uL [place] # (Auto) (0.0-0.8) K/uL Eos # (Auto) (0.0-0.7) K/uL Baso # (Auto) (0.0-0.1) K/uL Nucleated RBC % /100WBC Nucleated RBCs # K/uL INR Sodium 139 (136-148) mmol/L Potassium 4.0 (3.5-5.1) mmol/L Chloride 103 (98-107) mmol/L Carbon Dioxide 25.0 (21.0-32.0) mmol/L BUN 25 H (7.0-18.0) mg/dL Creatinine 1.4 H (0.8-1.3) mg/dL Est Cr Clr Drug Dosing 41.31 mL/min Estimated GFR (MDRD) 49.1 ml/min Glucose 111 H (74-106) mg/dL Calcium 8.5 (8.5-10.1) mg/dL Magnesium 2.3 (1.8-2.4) mg/dL Rey Results Last 24 Hours: Microbiology 08/13/20 08:05 Aerobic Blood Culture - Preliminary Blood - Venous - Lab Draw NO GROWTH AFTER 2 DAYS Anaerobic Blood Culture - Preliminary NO GROWTH AFTER 2 DAYS 08/13/20 07:38 Aerobic Blood Culture - Preliminary Blood - Venous NO GROWTH AFTER 2 DAYS Anaerobic Blood Culture - Preliminary NO GROWTH AFTER 2 DAYS 08/14/20 19:43 Gram Stain - Preliminary Sputum - Expectorated Med Orders - Current: Current Medications Acetaminophen (Acetaminophen 325 Mg Tab) 325 mg PO Q6H PRN PRN Reason: Pain Last Admin: 08/14/20 21:45 Dose: 325 mg Documented by: Albuterol (Albuterol 8 Gm Inhaler) 0 gm INH Q6H PRN PRN Reason: Dyspnea Allopurinol (Allopurinol 100 Mg Tab) 100 mg PO DAILY [facility] Last Admin: 08/14/20 08:50 Dose: 100 mg Documented by: Aspirin (Aspirin 81 Mg Tab.Chew) 81 mg PO DAILY [facility] Last Admin: 08/14/20 08:51 Dose: 81 mg Documented by: Calcium Carbonate/Glycine (Calcium Carbonate 500 Mg Tab.Chew) 500 mg PO TID PRN PRN Reason: Indigestion Last Admin: 08/13/20 16:56 Dose: 500 mg Documented by: Furosemide (Furosemide 40 Mg/4 Ml Vial) 40 mg IVPUSH DAILY [facility] Last Admin: 08/14/20 08:53 Dose: 40 mg Documented by: Azithromycin 500 mg/ Sodium (Chloride) 250 mls @ 250 mls/hr IV Q24H [facility] Last Admin: 08/14/20 14:15 Dose: 250 mls/hr Documented by: Piperacillin Sod/Tazobactam (Sod 4.5 gm/ Sodium Chloride) 100 mls @ 100 mls/hr IV Q6H [facility] Last Admin: 08/15/20 05:31 Dose: 100 mls/hr Documented by: Metoprolol Succinate (Metoprolol Succinate 25 Mg Tab.Er) 75 mg PO DAILY [facility] Budesonide/Glycopyr/Formoterol [[facility]osphere Own Med 0 each INH BIDRT [facility] Last Admin: 08/15/20 05:43 Dose: 1 each Documented by: Rosuvastatin Calcium (Rosuvastatin 10 Mg Tab) 20 mg PO DAILY [facility] Last Admin: 08/14/20 08:51 Dose: 20 mg Documented by: Senna/Docusate Sodium (Docusate Sodium/Sennosides 50-8.6 Mg Tab) 1 tab PO BID PRN PRN Reason: Constipation Last Admin: 08/13/20 15:38 Dose: 1 tab Documented by: Sodium Chloride (Sodium Chloride 0.9% 2.5 Ml Syringe) 2.5 ml FLUSH ASDIRECTED PRN PRN Reason: Keep Vein Open Warfarin Sodium (Warfarin Ask Dosing) 1 each PO DAILY@1400 [facility] Last Admin: 08/14/20 15:27 Dose: Not Given Documented by: Warfarin Sodium (Warfarin 5 Mg Tab) 5 mg PO DAILY@1400 [facility]ER Stop: 08/15/20 15:00 Discontinued Medications Albuterol (Albuterol 6.7 Gm Inhaler) 0 gm INH Q6H PRN PRN Reason: Dyspnea Albuterol/Ipratropium (Albuterol/Ipratropium 3.0-0.5 Mg/3 Ml Neb Soln) 3 ml NEB ONETIME ONE Stop: 08/13/20 11:39 Last Admin: 08/13/20 13:04 Dose: 3 ml Documented by: Sodium Chloride (Normal Saline) 1,000 mls @ 999 mls/hr IV .Bolus ONE Stop: 08/13/20 08:54 Last Admin: 08/13/20 08:00 Dose: 999 mls/hr Documented by: Ceftriaxone Sodium/Dextrose 1 (gm/ Premix) 50 mls @ 100 mls/hr IV ONETIME ONE Stop: 08/13/20 11:45 Last Admin: 08/13/20 12:16 Dose: 100 mls/hr Documented by: Clindamycin Phosphate 600 mg/ (Sodium Chloride) 54 mls @ 100 mls/hr IV ONETIME ONE Stop: 08/13/20 11:49 Last Admin: 08/13/20 13:08 Dose: Not Given Documented by: Clindamycin Phosphate 900 mg/ (Premix) 50 mls @ 100 mls/hr IV ONETIME ONE Stop: 08/13/20 12:43 Last Admin: 08/13/20 13:06 Dose: 100 mls/hr Documented by: Magnesium Sulfate 2 gm/ Premix 50 mls @ 12.5 mls/hr IV ONETIME ONE Stop: 08/14/20 12:29 Last Admin: 08/14/20 08:49 Dose: 12.5 mls/hr Documented by: Ceftriaxone Sodium/Dextrose 1 (gm/ Premix) 50 mls @ 100 mls/hr IV Q24H [facility] Iopamidol (Iopamidol 755 Mg/Ml 500 Ml Multipack Bottle) 100 ml IVPUSH ONETIME ONE Stop: 08/13/20 10:05 Last Admin: 08/13/20 10:05 Dose: 100 ml Documented by: Metoprolol Succinate (Metoprolol Succinate 50 Mg Tab.Er) 50 mg PO DAILY [facility] Last Admin: 08/14/20 08:50 Dose: 50 mg Documented by: Metoprolol Succinate (Metoprolol Succinate 25 Mg Tab.Er) 25 mg PO ONETIME ONE Stop: 08/14/20 09:45 Last Admin: 08/14/20 10:31 Dose: 25 mg Documented by: Non-Formulary Medication (Budesonide/Glycopyr/Formoterol [Breztri Aerosphere Inhaler]) 2 puff INH BID [facility] Budesonide/Glycopyr/Formoterol [Breztri Aerosphere Own Med 2 puff INH BID [facility] Last Admin: 08/14/20 10:45 Dose: Not Given Documented by: Budesonide/Glycopyr/Formoterol [Breztri Aerosphere Own Med 2 puff INH NOW ONE Stop: 08/13/20 22:46 Last Admin: 08/14/20 00:54 Dose: Not Given Documented by: Budesonide/Glycopyr/Formoterol [Breztri Aerosphere Own Med 2 puff INH NOW ONE Stop: 08/13/20 23:46 Last Admin: 08/14/20 00:54 Dose: Not Given Documented by: Budesonide/Glycopyr/Formoterol [Breztri Aerosphere Own Med 2 puff INH NOW ONE Stop: 08/14/20 00:31 Last Admin: 08/14/20 00:53 Dose: 2 puff Documented by: Sodium Chloride (Sodium Chloride 0.9% 10 Ml Syringe) 10 ml FLUSH ASDIRECTED PRN PRN Reason: Keep Vein Open Last Admin: 08/13/20 08:00 Dose: 10 ml Documented by: Sodium Chloride (Sodium Chloride 0.9% 2.5 Ml Syringe) 2.5 ml FLUSH ASDIRECTED PRN PRN Reason: Keep Vein Open Last Admin: 08/13/20 08:00 Dose: 2.5 ml Documented by: Warfarin Sodium (Warfarin Ask Dosing) 1 each PO ONETIME ONE Stop: 08/13/20 15:03 Last Admin: 08/13/20 16:42 Dose: Not Given Documented by: Warfarin Sodium (Warfarin 2.5 Mg Tab) 2.5 mg PO DAILY@1400 ZANDER Stop: 08/14/20 15:00 Last Admin: 08/14/20 14:14 Dose: 2.5 mg Documented by: - Exam General: Alert, Oriented, Cooperative, No Acute Distress Lungs: Normal Respiratory Effort, Decreased Breath Sounds (Left upper), Crackles (Bibasilar) Cardiovascular: Regular Rate GI/Abdominal Exam: Normal Bowel Sounds, Soft, Non-Tender Extremities: Normal Inspection, Normal Range of Motion, Non-Tender, No Pedal Edema Wound/Incisions: Healing Well Neurological: No New Focal Deficit Psy/Mental Status: Alert, Normal Affect, Normal Mood - Patient Data Lab Results Last 24 hrs: Laboratory Results - last 24 hr 08/14/20 08/15/20 08/15/20 Range/Units 05:05 05:45 05:45 WBC 21.71 H 12.59 H (4.0-11.0) K/uL RBC 4.01 L 4.08 L (4.50-5.90) M/uL Hgb 11.0 L 11.2 L (13.0-17.0) g/dL Hct 33.2 L 33.6 L (38.0-50.0) % MCV 82.8 82.4 (80.0-98.0) fL MCH 27.4 27.5 (27.0-32.0) pg MCHC 33.1 33.3 (31.0-37.0) g/dL RDW Std Deviation 48.0 48.3 (28.0-62.0) fl RDW Coeff of Sarah 16 H 16 H (11.0-15.0) % Plt Count 221 207 (150-400) K/uL MPV 9.80 9.70 (7.40-12.00) fL Neut % (Auto) 90.8 H 83.0 H (48.0-80.0) % Lymph % (Auto) 4.7 L 9.5 L (16.0-40.0) % [place] % (Auto) 4.0 6.2 (0.0-15.0) % Eos % (Auto) 0.4 1.1 (0.0-7.0) % Baso % (Auto) 0.1 0.2 (0.0-1.5) % Neut # (Auto) 19.7 H 10.5 H (1.4-5.7) K/uL Lymph # (Auto) 1.0 1.2 (0.6-2.4) K/uL [place] # (Auto) 0.9 H 0.8 (0.0-0.8) K/uL Eos # (Auto) 0.1 0.1 (0.0-0.7) K/uL Baso # (Auto) 0.0 0.0 (0.0-0.1) K/uL Nucleated RBC % 0.0 0.0 /100WBC Nucleated RBCs # 0 0 K/uL INR 2.09 Sodium (136-148) mmol/L Potassium (3.5-5.1) mmol/L Chloride (98-107) mmol/L Carbon Dioxide (21.0-32.0) mmol/L BUN (7.0-18.0) mg/dL Creatinine (0.8-1.3) mg/dL Est Cr Clr Drug Dosing mL/min Estimated GFR (MDRD) ml/min Glucose (74-106) mg/dL Calcium (8.5-10.1) mg/dL Magnesium (1.8-2.4) mg/dL 08/15/20 Range/Units 05:45 WBC (4.0-11.0) K/uL RBC (4.50-5.90) M/uL Hgb (13.0-17.0) g/dL Hct (38.0-50.0) % MCV (80.0-98.0) fL MCH (27.0-32.0) pg MCHC (31.0-37.0) g/dL RDW Std Deviation (28.0-62.0) fl RDW Coeff of Sarah (11.0-15.0) % Plt Count (150-400) K/uL MPV (7.40-12.00) fL Neut % (Auto) (48.0-80.0) % Lymph % (Auto) (16.0-40.0) % [place] % (Auto) (0.0-15.0) % Eos % (Auto) (0.0-7.0) % Baso % (Auto) (0.0-1.5) % Neut # (Auto) (1.4-5.7) K/uL Lymph # (Auto) (0.6-2.4) K/uL [place] # (Auto) (0.0-0.8) K/uL Eos # (Auto) (0.0-0.7) K/uL Baso # (Auto) (0.0-0.1) K/uL Nucleated RBC % /100WBC Nucleated RBCs # K/uL INR Sodium 139 (136-148) mmol/L Potassium 4.0 (3.5-5.1) mmol/L Chloride 103 (98-107) mmol/L Carbon Dioxide 25.0 (21.0-32.0) mmol/L BUN 25 H (7.0-18.0) mg/dL Creatinine 1.4 H (0.8-1.3) mg/dL Est Cr Clr Drug Dosing 41.31 mL/min Estimated GFR (MDRD) 49.1 ml/min Glucose 111 H (74-106) mg/dL Calcium 8.5 (8.5-10.1) mg/dL Magnesium 2.3 (1.8-2.4) mg/dL Result Diagrams: 08/15/20 05:45 08/15/20 05:45 Rey Results Last 24 hrs: Microbiology 08/13/20 08:05 Aerobic Blood Culture - Preliminary Blood - Venous - Lab Draw NO GROWTH AFTER 2 DAYS Anaerobic Blood Culture - Preliminary NO GROWTH AFTER 2 DAYS 08/13/20 07:38 Aerobic Blood Culture - Preliminary Blood - Venous NO GROWTH AFTER 2 DAYS Anaerobic Blood Culture - Preliminary NO GROWTH AFTER 2 DAYS 08/14/20 19:43 Gram Stain - Preliminary Sputum - Expectorated Sepsis Event Note - Evaluation Sepsis Screening Result: Severe Sepsis Risk - Focused Exam Vital Signs: Vital Signs Temp Pulse Resp BP Pulse Ox 08/15/20 07:42 97.5 F 95 20 139/76 95 08/15/20 04:00 98.4 F 91 17 132/73 94 L 08/14/20 23:55 98.4 F 93 17 121/71 94 L - Problem List & Annotations (1) Community acquired pneumonia SNOMED Code(s): 765694806 Code(s): J18.9 - PNEUMONIA, UNSPECIFIED ORGANISM Status: Acute Current Visit: Yes (2) Congestive heart failure SNOMED Code(s): 68098155 Code(s): I50.9 - HEART FAILURE, UNSPECIFIED Status: Acute Current Visit: No Qualifiers: Heart failure type: unspecified Heart failure chronicity: unspecified Qualified Code(s): I50.9 - Heart failure, unspecified (3) Lung cancer SNOMED Code(s): 754388157 Code(s): C34.90 - MALIGNANT NEOPLASM OF UNSP PART OF UNSP BRONCHUS OR LUNG Status: Chronic Current Visit: Yes Qualifiers: Laterality: left Lung location: upper lobe of lung Qualified Code(s): C34.12 - Malignant neoplasm of upper lobe, left bronchus or lung (4) Pleural effusion SNOMED Code(s): 00482361 Code(s): J90 - PLEURAL EFFUSION, NOT ELSEWHERE CLASSIFIED Status: Chronic Current Visit: No (5) Atrial fibrillation SNOMED Code(s): 64519567 Code(s): I48.91 - UNSPECIFIED ATRIAL FIBRILLATION Status: Chronic Current Visit: Yes (6) Anticoagulation adequate SNOMED Code(s): 688505093, 348728273 Code(s): Z79.01 - HALF-WAY (CURRENT) USE OF ANTICOAGULANTS Status: Chronic Current Visit: Yes - Problem List Review Problem List Initiated/Reviewed/Updated: Yes - My Orders Last 24 Hours: My Active Orders 08/14/20 07:57 Sodium Chloride 0.9% [Saline Flush] 2.5 ml FLUSH ASDIRECTED PRN Saline Lock Insert [OM.PC] Routine 08/14/20 07:58 Intake and Output Strict [RC] Q12H Vital Signs [RC] Q4H 08/14/20 11:15 Piperacillin/Tazobactam [Piperacil-Tazobact] 4.5 gm Sodium Chloride 0.9% [Normal Saline] 100 ml IV Q6H 08/14/20 11:25 Patient Status [ADT] Stat 08/14/20 11:51 Echo Comp wo Cont [US] Urgent 08/14/20 14:23 Code Status [Resuscitation Status] Routine 08/14/20 19:43 CULTURE SPUTUM + SMEAR [RM] Routine 08/15/20 09:00 Metoprolol Succinate [Toprol XL] 75 mg PO DAILY 08/16/20 05:11 BASIC METABOLIC PANEL,BMP [CHEM] AM CBC WITH AUTO DIFF [HEME] AM MAGNESIUM [CHEM] AM 08/17/20 05:11 BASIC METABOLIC PANEL,BMP [CHEM] AM CBC WITH AUTO DIFF [HEME] AM MAGNESIUM [CHEM] AM - Plan Plan:: 79 yo male admitted for CHF exacerbation and possible pneumonia 1. CHF exacerbation -Continue change IV to p.o. dosing tomorrow, patient appears euvolemic - echocardiogram pending -Strict I's and O's, daily weights, low-sodium diet and 2 L fluid restriction. -Monitor on telemetry 2. Community-acquired pneumonia: -Leukocytosis improved today back down to 12,000 -Continue Zosyn and Azithromycin -sputum culture showed gram-positive cocci in singles and pairs, blood cultures negative x2 day 3. Afib: -Continue metoprolol and Coumadin -Stable 4. Lung cancer -Wishes to cancel initial evaluation in [place] and would like to see Dr. Malin, oncology here at [facility]. Dr. Malin has approved this but appointment will not be till September. Patient feels this is okay it is appropriate as patient will need time to recover from current infection for possible chemotherapy at a later date. -Has outpatient MRI scheduled today of brain. Will need to reschedule at this point patient and aware and are okay with this. VTE prophylaxis: Coumadin CODE STATUS: DNR/DNI Dispo: If continued improvement possible discharge in a.m.
[2020-08-15] MEDS ORDERED: Warfarin 5 MG Tab PO SCH (14:00)
[2020-08-15] MEDS: Azithromycin 500 MG in Sodium Chloride 0.9% 250 ML IV SCH (14:40)
[2020-08-15] MEDS: Calcium Carbonate 500 MG Tab.Chew PO PRN (17:46)
[2020-08-15] MEDS ORDERED: Calcium Carbonate 500 MG Tab.Chew PO ONE (21:18)
[2020-08-16] MEDS: Piperacillin/Tazobactam 4.5 GM in Sodium Chloride 0.9% 100 ML IV SCH ×2 (05:36→10:51)
[2020-08-16 05:57] LABS: CARBON DIOXIDE,CO2 25.7 mmol/L (21.0-32.0); POTASSIUM,K 3.5 mmol/L (3.5-5.1)
[2020-08-16] MEDS: FORMOTEROL INH SCH (08:19)
[2020-08-16] MEDS: BUDESONIDE INH SCH (08:19)
[2020-08-16] MEDS: GLYCOPYR INH SCH (08:19)
[2020-08-16] MEDS ORDERED: Furosemide 40 MG Tab PO SCH (09:00)
[2020-08-16] MEDS: Rosuvastatin 10 MG Tab PO SCH (09:28)
[2020-08-16] MEDS: Aspirin 81 MG Tab.Chew PO SCH (09:28)
[2020-08-16] MEDS: Metoprolol Succinate 25 MG Tab.ER PO SCH (09:29)
[2020-08-16] MEDS: Allopurinol 100 MG Tab PO SCH (09:30)
[2020-08-16 11:53] VITALS: BP 122/68; PULSE 87
[2020-08-16] MEDS ORDERED: Warfarin 5 MG Tab PO SCH (14:00)
--- NOTE | 2020-08-16 15:56 | PCM.DCSUM1 ---
Discharge Summary - Hospital Course Brief History: 79 yo male with pmh of atrial fibrillation, CAD, and lung cancer. PAtient reports in March he had CABG following which he had recurrent pleural effusions in which he had a chest tube catheter placed for several months. Due to low output it was removed last week. He has recently been diagnosed with lung cancer by Deepak and is in the process of staging. He has an brain MRI scheduled for tomorrow and plans on getting his care referred to [facility]. He presented to the ER today with several day history of shortness of breath especially while laying down. He reports increase in edema of his hands and feet. He denies any fevers or chest pain. Patient reports he has been having a more productive cough of pinkish phlegm. Patient takes lasix daily and Dr. Kelly recently increased his lasix from 20 daily to 40 daily. He does not know if his has a history of heart failure. - Discharge Data Discharge Date: 08/16/20 Discharge Disposition: [place], [facility] 06 Condition: Stable - Referral to Home Health Date of Face to Face Encounter: 08/16/20 Reason for Homebound Status: [facility] Primary Care Physician: Rolan Nevarez MD Skilled Need: [facility] - Discharge Diagnosis/Problem(s) (1) Community acquired pneumonia SNOMED Code(s): 852586675 ICD Code: J18.9 - PNEUMONIA, UNSPECIFIED ORGANISM Status: Acute (2) Congestive heart failure SNOMED Code(s): 71213293 ICD Code: I50.9 - HEART FAILURE, UNSPECIFIED Status: Acute Qualifiers: Heart failure type: unspecified Heart failure chronicity: unspecified Qualified Code(s): I50.9 - Heart failure, unspecified (3) Lung cancer SNOMED Code(s): 885466477 ICD Code: C34.90 - MALIGNANT NEOPLASM OF UNSP PART OF UNSP BRONCHUS OR LUNG Status: Chronic Qualifiers: Laterality: left Lung location: upper lobe of lung Qualified Code(s): C34.12 - Malignant neoplasm of upper lobe, left bronchus or lung (4) Pleural effusion SNOMED Code(s): 65084842 ICD Code: J90 - PLEURAL EFFUSION, NOT ELSEWHERE CLASSIFIED Status: Chronic (5) Atrial fibrillation SNOMED Code(s): 90609955 ICD Code: I48.91 - UNSPECIFIED ATRIAL FIBRILLATION Status: Chronic (6) Anticoagulation adequate SNOMED Code(s): 502451864, 776899322 ICD Code: Z79.01 - GROUP HOME (CURRENT) USE OF ANTICOAGULANTS Status: Chronic - Patient Summary/Data Hospital Course: Admission diagnoses community-acquired pneumonia Possible CHF Discharge diagnoses Community-acquired pneumonia Other PMH CAD History CABG Atrial fibrillation Pleural effusion Anticoagulation Lung cancer, stage I Patient was admitted secondary to dyspnea initially was felt that he likely had some exacerbation of CHF. He was started on diuresis as well as a azithromycin and Rocephin for possible CAP. Leukocytosis noted on admission around 12,000. Second day of admission white count jumped to 22,000. His sputum changed on day 2 of admission to more green and increased in amount. Due to his immunosuppressive state antibiotic coverage was broadened to azithromycin and Zosyn. The following day leukocytosis improved back to 12,000 and patient was feeling improved. Echo is pending but was felt that CHF less likely at this time as his main concern was likely community-acquired pneumonia. Antibiotic coverage was continued Lasix was decreased back down to his p.o. dosing at home. Patient continued to do well was up ambulating with in the hallway. Leukocytosis resolved on 08 16. Patient continues to do well. Blood cultures negative sputum culture normal respiratory rony. Patient renal function remained stable patient denies any chest pain does report intermittent dyspnea but oxygen saturations on room air have been 95% and above. Patient will be discharged home today on 5 more days of Augmentin he is to follow-up with his PCP or return to the ER if concerns should arise. Patient missed appointment for brain MRI this will be rescheduled at his convenience. Patient also had follow-up in [place] on Friday for oncology appointment. Patient and family expressed wishes to have this appointment in [facility] if possible. Nursing staff was able to arrange appointment here in [place] towards the end of August and this was okayed by oncologist Dr. Malin. Patient and family very gracious and thankful for us arranging this. He will be discharged home today he is to return to the ER or clinic if concerns should arise. - Patient Instructions Diet: Heart Healthy Diet, Low Sodium Fluid Restriction: 2000 mL Activity: As Tolerated, No Strenuous Activities Driving: May Drive Today Showering/Bathing: May Shower Notify Provider of: Fever, Increased Pain, Swelling and Redness, Drainage, Nausea and/or Vomiting - Discharge Plan *PRESCRIPTION DRUG MONITORING PROGRAM REVIEWED*: Not Applicable *COPY OF PRESCRIPTION DRUG MONITORING REPORT IN PATIENT DWAINE: Not Applicable Prescriptions/Med Rec: Amoxicillin/Clavulanate K [Augmentin 875-125 MG] 1 tab PO BID #10 tablet Home Medications: Home Meds Acetaminophen 325 mg PO Q6H PRN 08/13/20 [History] Albuterol Sulfate [Albuterol Sulfate HFA] 1 puff INH ASDIRECTED PRN 08/13/20 [History] Aspirin 81 mg PO DAILY 08/13/20 [History] Budesonide/Glycopyr/Formoterol [Breztri Aerosphere Inhaler] 2 puff INH BID 08/13/20 [History] Celecoxib 200 mg PO DAILY 08/13/20 [History] Furosemide 40 mg PO DAILY 08/13/20 [History] LORazepam [Ativan] 0.5 mg PO Q8H PRN 08/13/20 [History] Metoprolol Succinate [Toprol Xl] 75 mg PO DAILY 08/13/20 [History] Rosuvastatin [Crestor] 20 mg PO DAILY 08/13/20 [History] Sennosides/Docusate Sodium [Senna-Docusate Sodium Tablet] 1 tab PO BID PRN 08/13/20 [History] Warfarin [Coumadin] 5 mg PO SUTUWETHSA 08/13/20 [History] allopurinoL [Zyloprim] 100 mg PO DAILY 08/13/20 [History] Warfarin [Coumadin] 2.5 mg PO MOFR 08/14/20 [History] Amoxicillin/Clavulanate K [Augmentin 875-125 MG] 1 tab PO BID #10 tablet 08/16/20 [Rx] Oxygen Therapy Mode: Room Air Patient Handouts: Amoxicillin; Clavulanic Acid Tablets, Low-Sodium Eating Plan, Community-Acquired Pneumonia, Adult, [id number] Referrals: Ike Malin MD [Ordering Only Provider] - 08/30/20 1:00 pm (You will see Dr. Malin here in [place] instead of [place].) Rolan Nevarez MD [Primary Care Provider] - 08/23/20 10:30 am - Discharge Summary/Plan Comment DC Time >30 min.: No - Patient Data Vitals - Most Recent: Last Vital Signs Temp 97.6 F 08/16/20 11:45 Pulse 87 08/16/20 11:45 Resp 17 08/16/20 11:45 BP 122/68 08/16/20 11:45 Pulse Ox 95 08/16/20 11:45 Weight - Most Recent: 75.568 kg I&O - Last 24 hours: Intake & Output 08/16/20 08/16/20 08/16/20 06:59 14:59 22:59 Intake Total 700 800 Output Total 800 780 Balance -100 20 Lab Results - Last 24 hrs: Laboratory Results - last 24 hr 08/16/20 08/16/20 08/16/20 Range/Units 04:48 04:48 04:48 WBC 7.45 (4.0-11.0) K/uL RBC 3.95 L (4.50-5.90) M/uL Hgb 10.9 L (13.0-17.0) g/dL Hct 32.9 L (38.0-50.0) % MCV 83.3 (80.0-98.0) fL MCH 27.6 (27.0-32.0) pg MCHC 33.1 (31.0-37.0) g/dL RDW Std Deviation 48.8 (28.0-62.0) fl RDW Coeff of Sarah 16 H (11.0-15.0) % Plt Count 222 (150-400) K/uL MPV 10.10 (7.40-12.00) fL Neut % (Auto) 75.9 (48.0-80.0) % Lymph % (Auto) 13.6 L (16.0-40.0) % [place] % (Auto) 8.6 (0.0-15.0) % Eos % (Auto) 1.5 (0.0-7.0) % Baso % (Auto) 0.4 (0.0-1.5) % Neut # (Auto) 5.7 (1.4-5.7) K/uL Lymph # (Auto) 1.0 (0.6-2.4) K/uL [place] # (Auto) 0.6 (0.0-0.8) K/uL Eos # (Auto) 0.1 (0.0-0.7) K/uL Baso # (Auto) 0.0 (0.0-0.1) K/uL Nucleated RBC % 0.0 /100WBC Nucleated RBCs # 0 K/uL INR 2.15 Sodium 140 (136-148) mmol/L Potassium 3.5 (3.5-5.1) mmol/L Chloride 103 (98-107) mmol/L Carbon Dioxide 25.7 (21.0-32.0) mmol/L BUN 27 H (7.0-18.0) mg/dL Creatinine 1.5 H (0.8-1.3) mg/dL Est Cr Clr Drug Dosing 38.56 mL/min Estimated GFR (MDRD) 45.4 ml/min Glucose 110 H (74-106) mg/dL Calcium 8.7 (8.5-10.1) mg/dL Magnesium 2.1 (1.8-2.4) mg/dL SUDHAKAR Results - Last 24 hrs: Microbiology 08/14/20 19:43 Gram Stain - Final Sputum - Expectorated Sputum Culture - Final Normal Respiratory Rony 08/13/20 08:05 Aerobic Blood Culture - Preliminary Blood - Venous - Lab Draw NO GROWTH AFTER 3 DAYS Anaerobic Blood Culture - Preliminary NO GROWTH AFTER 3 DAYS 08/13/20 07:38 Aerobic Blood Culture - Preliminary Blood - Venous NO GROWTH AFTER 3 DAYS Anaerobic Blood Culture - Preliminary NO GROWTH AFTER 3 DAYS Med Orders - Current: Current Medications Discontinued Medications Acetaminophen (Acetaminophen 325 Mg Tab) 325 mg PO Q6H PRN PRN Reason: Pain Last Admin: 08/14/20 21:45 Dose: 325 mg Documented by: Albuterol (Albuterol 6.7 Gm Inhaler) 0 gm INH Q6H PRN PRN Reason: Dyspnea Albuterol (Albuterol 8 Gm Inhaler) 0 gm INH Q6H PRN PRN Reason: Dyspnea Albuterol/Ipratropium (Albuterol/Ipratropium 3.0-0.5 Mg/3 Ml Neb Soln) 3 ml NEB ONETIME ONE Stop: 08/13/20 11:39 Last Admin: 08/13/20 13:04 Dose: 3 ml Documented by: Allopurinol (Allopurinol 100 Mg Tab) 100 mg PO DAILY [facility] Last Admin: 08/16/20 09:30 Dose: 100 mg Documented by: Aspirin (Aspirin 81 Mg Tab.Chew) 81 mg PO DAILY [facility] Last Admin: 08/16/20 09:28 Dose: 81 mg Documented by: Calcium Carbonate/Glycine (Calcium Carbonate 500 Mg Tab.Chew) 500 mg PO TID PRN PRN Reason: Indigestion Last Admin: 08/15/20 17:46 Dose: 500 mg Documented by: Calcium Carbonate/Glycine (Calcium Carbonate 500 Mg Tab.Chew) 500 mg PO ONETIME ONE Stop: 08/15/20 21:19 Last Admin: 08/15/20 21:41 Dose: 500 mg Documented by: Furosemide (Furosemide 40 Mg/4 Ml Vial) 40 mg IVPUSH DAILY [facility] Last Admin: 08/15/20 08:23 Dose: 40 mg Documented by: Furosemide (Furosemide 40 Mg Tab) 40 mg PO DAILY [facility] Last Admin: 08/16/20 09:31 Dose: 40 mg Documented by: Sodium Chloride (Normal Saline) 1,000 mls @ 999 mls/hr IV .Bolus ONE Stop: 08/13/20 08:54 Last Admin: 08/13/20 08:00 Dose: 999 mls/hr Documented by: Ceftriaxone Sodium/Dextrose 1 (gm/ Premix) 50 mls @ 100 mls/hr IV ONETIME ONE Stop: 08/13/20 11:45 Last Admin: 08/13/20 12:16 Dose: 100 mls/hr Documented by: Clindamycin Phosphate 600 mg/ (Sodium Chloride) 54 mls @ 100 mls/hr IV ONETIME ONE Stop: 08/13/20 11:49 Last Admin: 08/13/20 13:08 Dose: Not Given Documented by: Clindamycin Phosphate 900 mg/ (Premix) 50 mls @ 100 mls/hr IV ONETIME ONE Stop: 08/13/20 12:43 Last Admin: 08/13/20 13:06 Dose: 100 mls/hr Documented by: Azithromycin 500 mg/ Sodium (Chloride) 250 mls @ 250 mls/hr IV Q24H [facility] Last Admin: 08/15/20 14:40 Dose: 250 mls/hr Documented by: Magnesium Sulfate 2 gm/ Premix 50 mls @ 12.5 mls/hr IV ONETIME ONE Stop: 08/14/20 12:29 Last Admin: 08/14/20 08:49 Dose: 12.5 mls/hr Documented by: Ceftriaxone Sodium/Dextrose 1 (gm/ Premix) 50 mls @ 100 mls/hr IV Q24H [facility] Piperacillin Sod/Tazobactam (Sod 4.5 gm/ Sodium Chloride) 100 mls @ 100 mls/hr IV Q6H [facility] Last Admin: 08/16/20 10:51 Dose: 100 mls/hr Documented by: Iopamidol (Iopamidol 755 Mg/Ml 500 Ml Multipack Bottle) 100 ml IVPUSH ONETIME ONE Stop: 08/13/20 10:05 Last Admin: 08/13/20 10:05 Dose: 100 ml Documented by: Metoprolol Succinate (Metoprolol Succinate 50 Mg Tab.Er) 50 mg PO DAILY [facility] Last Admin: 08/14/20 08:50 Dose: 50 mg Documented by: Metoprolol Succinate (Metoprolol Succinate 25 Mg Tab.Er) 25 mg PO ONETIME ONE Stop: 08/14/20 09:45 Last Admin: 08/14/20 10:31 Dose: 25 mg Documented by: Metoprolol Succinate (Metoprolol Succinate 25 Mg Tab.Er) 75 mg PO DAILY [facility] Last Admin: 08/16/20 09:29 Dose: 75 mg Documented by: Non-Formulary Medication (Budesonide/Glycopyr/Formoterol [Breztri Aerosphere Inhaler]) 2 puff INH BID [facility] Budesonide/Glycopyr/Formoterol [Breztri Aerosphere Own Med 2 puff INH BID [facility] Last Admin: 08/14/20 10:45 Dose: Not Given Documented by: Budesonide/Glycopyr/Formoterol [Breztri Aerosphere Own Med 2 puff INH NOW ONE Stop: 08/13/20 22:46 Last Admin: 08/14/20 00:54 Dose: Not Given Documented by: Budesonide/Glycopyr/Formoterol [Breztri Aerosphere Own Med 2 puff INH NOW ONE Stop: 08/13/20 23:46 Last Admin: 08/14/20 00:54 Dose: Not Given Documented by: Budesonide/Glycopyr/Formoterol [Breztri Aerosphere Own Med 2 puff INH NOW ONE Stop: 08/14/20 00:31 Last Admin: 08/14/20 00:53 Dose: 2 puff Documented by: Budesonide/Glycopyr/Formoterol [Omayrai Aerosphere Own Med 0 each INH BIDRT [facility] Last Admin: 08/16/20 08:19 Dose: 1 each Documented by: Rosuvastatin Calcium (Rosuvastatin 10 Mg Tab) 20 mg PO DAILY [facility] Last Admin: 08/16/20 09:28 Dose: 20 mg Documented by: Senna/Docusate Sodium (Docusate Sodium/Sennosides 50-8.6 Mg Tab) 1 tab PO BID PRN PRN Reason: Constipation Last Admin: 08/13/20 15:38 Dose: 1 tab Documented by: Sodium Chloride (Sodium Chloride 0.9% 10 Ml Syringe) 10 ml FLUSH ASDIRECTED PRN PRN Reason: Keep Vein Open Last Admin: 08/13/20 08:00 Dose: 10 ml Documented by: Sodium Chloride (Sodium Chloride 0.9% 2.5 Ml Syringe) 2.5 ml FLUSH ASDIRECTED PRN PRN Reason: Keep Vein Open Last Admin: 08/13/20 08:00 Dose: 2.5 ml Documented by: Sodium Chloride (Sodium Chloride 0.9% 2.5 Ml Syringe) 2.5 ml FLUSH ASDIRECTED PRN PRN Reason: Keep Vein Open Warfarin Sodium (Warfarin Ask Dosing) 1 each PO DAILY@1400 [facility] Last Admin: 08/16/20 14:21 Dose: Not Given Documented by: Warfarin Sodium (Warfarin Ask Dosing) 1 each PO ONETIME ONE Stop: 08/13/20 15:03 Last Admin: 08/13/20 16:42 Dose: Not Given Documented by: Warfarin Sodium (Warfarin 2.5 Mg Tab) 2.5 mg PO DAILY@1400 [facility] Stop: 08/14/20 15:00 Last Admin: 08/14/20 14:14 Dose: 2.5 mg Documented by: Warfarin Sodium (Warfarin 5 Mg Tab) 5 mg PO DAILY@1400 [facility] Stop: 08/15/20 15:00 Last Admin: 08/15/20 14:40 Dose: 5 mg Documented by: Warfarin Sodium (Warfarin 5 Mg Tab) 5 mg PO DAILY@1400 [facility] Stop: 08/16/20 15:00 Last Admin: 08/16/20 13:51 Dose: 5 mg Documented by:
--- NOTE | 2020-08-17 11:55 | ECHO ---
EXAM DATE: 08/14/20 PATIENT'S AGE: 79 The ECHO report has been scanned into [employer] and can be seen in this patient's EMR (Electronic Medical Record) under the REPORTS section. The report has also been scanned into PACS. ASIF
== END 2020-08-16 14:15 | disposition home health service (06) | DRG 194 ==
LOC: MW.ED 07:15 → MW.MS 11:31 → OBSVTOIN 08-14 11:25 → MW.MS 08-14 11:57
PROVIDERS: ADMIT Internal Medicine; ATTEND Internal Medicine
DX: J18.9 Pneumonia, unspecified organism (principal); C34.12 Malignant neoplasm of upper lobe, left bronchus or lung; J90 Pleural effusion, not elsewhere classified; J44.0 Chronic obstructive pulmonary disease with (acute) lower respiratory infection; I50.9 Heart failure, unspecified; Z79.01 Long term (current) use of anticoagulants; I25.10 Atherosclerotic heart disease of native coronary artery without angina pectoris; M10.9 Gout, unspecified; Z95.1 Presence of aortocoronary bypass graft; I48.91 Unspecified atrial fibrillation; Z86.711 Personal history of pulmonary embolism; Z87.891 Personal history of nicotine dependence; J44.9 Chronic obstructive pulmonary disease, unspecified; Z79.82 Long term (current) use of aspirin; Z79.899 Other long term (current) drug therapy; I11.0 Hypertensive heart disease with heart failure; Z86.73 Personal history of transient ischemic attack (TIA), and cerebral infarction without residual deficits; Z20.822 Contact with and (suspected) exposure to COVID-19; Z66 Do not resuscitate
CPT/HCPCS: 36415 ×2; 71045; 71275; 80048; 80053; 81003; 83605; 83735; 83880; 84484; 85025 ×2; 85610 ×2; 87040 ×2; 93005; 96365; 96375; 99285; A9270 ×9; J0456; J0696; J1940 ×2; J3475; J3490; J7030; J7050; Q9967; U0002; 87070; 87205; 93010; 93306; 96366; 96367; 96376; 99284; G0378; J2543; J7620-GY

== ENCOUNTER 2020-11-13 12:38 | Emergency (ER) | payer MEDICARE, OTHER ==
--- NOTE | 2020-11-13 12:53 | EDM.PDOC ---
ED HPI GENERAL MEDICAL PROBLEM - General Chief Complaint: Trauma Stated Complaint: DIZZINESS, AND FELL Time Seen by Provider: 11/13/20 12:45 Source of Information: Reports: Patient, EMS History Limitations: Reports: No Limitations - History of Present Illness INITIAL COMMENTS - FREE TEXT/NARRATIVE: 79-year-old male past medical history TIA, congestive heart failure, atrial fibr illation on warfarin, lung cancer, COPD presents for syncopal episode and fall. Patient states that he was outside with his grandson and began to feel dizzy causing him to fall backwards. He is uncertain if he had his head. He does note abrasions to his left elbow and left knee. He was also having some pain in his right arm that is since gone away. Denies any chest pain or difficulty breathing. Denies any headaches. Denies any neck or back pain. - Related Data Allergies Allergy/AdvReac Type Severity Reaction Status Date / Time lidocaine Allergy Other Verified 11/13/20 13:08 Home Meds: Home Meds Acetaminophen 325 mg PO Q6H PRN 08/13/20 [History] Albuterol Sulfate [Albuterol Sulfate HFA] 1 puff INH ASDIRECTED PRN 08/13/20 [History] Aspirin 81 mg PO DAILY 08/13/20 [History] Budesonide/Glycopyr/Formoterol [Breztri Aerosphere Inhaler] 2 puff INH BID 08/13/20 [History] Celecoxib 200 mg PO DAILY 08/13/20 [History] Furosemide 40 mg PO DAILY 08/13/20 [History] LORazepam [Ativan] 0.5 mg PO Q8H PRN 08/13/20 [History] Metoprolol Succinate [Toprol Xl] 75 mg PO DAILY 08/13/20 [History] Rosuvastatin [Crestor] 20 mg PO DAILY 08/13/20 [History] Sennosides/Docusate Sodium [Senna-Docusate Sodium Tablet] 1 tab PO BID PRN 08/13/20 [History] Warfarin [Coumadin] 5 mg PO SUTUWETHSA 08/13/20 [History] allopurinoL [Zyloprim] 100 mg PO DAILY 08/13/20 [History] Warfarin [Coumadin] 2.5 mg PO MOFR 08/14/20 [History] Amoxicillin/Clavulanate K [Augmentin 875-125 MG] 1 tab PO BID #10 tablet 08/16/20 [Rx] Past Medical History Cardiovascular History: Reports: Afib, Bypass, CAD, Heart Failure, Hypertension Respiratory History: Reports: COPD, PE Musculoskeletal History: Reports: Gout Neurological History: Reports: TIA - Infectious Disease History Infectious Disease History: Reports: Chicken Pox - Past Surgical History Other Cardiovascular Surgeries/Procedures: CABG x4 Social & Family History - Family History Family Medical History: No Pertinent Family History - Caffeine Use Caffeine Use: Reports: Coffee Review of Systems - Review of Systems Review Of Systems: Comprehensive ROS is negative, except as noted in HPI. ED EXAM, GENERAL - Physical Exam Exam: See Below Exam Limited By: No Limitations General Appearance: Alert, WD/WN, No Apparent Distress Eye Exam: Bilateral Eye: EOMI, PERRL Ears: Hearing Grossly Normal Nose: Normal Inspection Throat/Mouth: Normal Voice, No Airway Compromise Head: Atraumatic, Normocephalic Neck: Normal Inspection, Supple, Non-Tender Respiratory/Chest: No Respiratory Distress, Lungs Clear, Normal Breath Sounds, No Accessory Muscle Use Cardiovascular: Normal Peripheral Pulses, No Edema GI/Abdominal: Soft, Non-Tender Back Exam: Normal Inspection. No: Vertebral Tenderness Extremities: Normal Inspection, Other (normal ROM and no TTP of RUE, no pelvic TTP, normal mm strength LE) Neurological: Alert, Oriented, CN II-XII Intact Psychiatric: Normal Affect, Normal Mood Skin Exam: Warm, Dry, Intact, Normal Color, Other (abrasion to L elbow, abrasion to L knee) #1 Interpretation EKG Date: 11/13/20 Time: 13:30 Rhythm: A-Fib Rate (Beats/Min): 74 [place]: Normal QRS: Normal ST-T: Normal QT: Normal EKG Interpretation Comments: Afib, no ischemic changes Course - Vital Signs Last Recorded V/S: Last Vital Signs Temp 97 F 11/13/20 13:08 Pulse 74 11/13/20 13:08 Resp 18 11/13/20 13:08 BP 133/76 11/13/20 13:08 Pulse Ox 96 11/13/20 13:08 - Orders/Labs/Meds Orders: Active Orders 24 hr Category Date Time Status EKG 12 Lead [EKG Documentation Completion] [RC] STAT Care 11/13/20 12:49 Active Vaccines to be Administered [RC] PER UNIT ROUTINE Care 11/13/20 12:48 Active Chest 1V Frontal [CR] Stat Exams 11/13/20 12:45 Taken Pelvis 1V or 2V [CR] Stat Exams 11/13/20 12:48 Taken Sodium Chloride 0.9% [Normal Saline] 1,000 ml Med 11/13/20 13:30 Active IV .Bolus Saline Lock Insert [OM.PC] Stat Oth 11/13/20 13:30 Ordered Medication Orders Sodium Chloride (Normal Saline) 1,000 mls @ 999 mls/hr IV .Bolus ONE Stop: 11/13/20 14:30 Labs: Laboratory Tests 11/13/20 11/13/20 11/13/20 Range/Units 12:47 12:47 12:47 WBC 6.19 (4.0-11.0) K/uL RBC 3.89 L (4.50-5.90) M/uL Hgb 10.5 L (13.0-17.0) g/dL Hct 32.1 L (38.0-50.0) % MCV 82.5 (80.0-98.0) fL MCH 27.0 (27.0-32.0) pg MCHC 32.7 (31.0-37.0) g/dL RDW Std Deviation 59.0 (28.0-62.0) fl RDW Coeff of Sarah 20 H (11.0-15.0) % Plt Count 154 (150-400) K/uL MPV 9.60 (7.40-12.00) fL Neut % (Auto) 82.5 H (48.0-80.0) % Lymph % (Auto) 8.6 L (16.0-40.0) % [place] % (Auto) 7.9 (0.0-15.0) % Eos % (Auto) 0.8 (0.0-7.0) % Baso % (Auto) 0.2 (0.0-1.5) % Neut # (Auto) 5.1 (1.4-5.7) K/uL Lymph # (Auto) 0.5 L (0.6-2.4) K/uL [place] # (Auto) 0.5 (0.0-0.8) K/uL Eos # (Auto) 0.1 (0.0-0.7) K/uL Baso # (Auto) 0.0 (0.0-0.1) K/uL Nucleated RBC % 0.0 /100WBC Nucleated RBCs # 0 K/uL INR 2.02 APTT 32.1 H (18.6-31.3) SEC Sodium 137 (136-148) mmol/L Potassium 4.5 (3.5-5.1) mmol/L Chloride 104 (98-107) mmol/L Carbon Dioxide 24.1 (21.0-32.0) mmol/L BUN 54 H (7.0-18.0) mg/dL Creatinine 1.9 H (0.8-1.3) mg/dL Est Cr Clr Drug Dosing 35.74 mL/min Estimated GFR (MDRD) 34.5 ml/min Glucose 117 H (74-106) mg/dL Calcium 8.6 (8.5-10.1) mg/dL Total Bilirubin 0.8 (0.2-1.0) mg/dL AST 26 (15-37) IU/L ALT 29 (14-63) IU/L Alkaline Phosphatase 142 H (46-116) U/L Troponin I < 0.050 (0.000-0.056) ng/mL Total Protein 6.7 (6.4-8.2) g/dL Albumin 3.3 L (3.4-5.0) g/dL Globulin 3.4 (2.6-4.0) g/dL Albumin/Globulin Ratio 1.0 (0.9-1.6) Meds: Medications Generic Name Dose Route Start Last Admin Trade Name Freq PRN Reason Stop Dose Admin Sodium Chloride 1,000 mls @ 999 mls/hr 11/13/20 13:30 Normal Saline IV 11/13/20 14:30 .Bolus ONE Discontinued Medications Generic Name Dose Route Start Last Admin Trade Name Freq PRN Reason Stop Dose Admin Diphtheria/Tetanus/Acell Pertussis 0.5 ml 11/13/20 12:48 11/13/20 13:44 Diphtheria,Pertussis(Acell),Tetanus Vaccine 0.5 Ml Syringe IM 11/13/20 12:49 Not Given .ONCE ONE - Re-Assessments/Exams Free Text/Narrative Re-Assessment/Exam: 11/13/20 13:04 We will get basic labs including troponin and coags. Will get head CT and C- spine CT. Will get chest and pelvis x-ray. Will get EKG. 11/13/20 13:31 Labs to show mild elevation in patient's BUN and creatinine. Will give 1 L fluid bolus. 11/13/20 13:48 Imaging is unremarkable. I did recommend the patient get a 1 L IV fluid bolus for his mild CONRADO but he declines. Will hydrate the patient orally. He is stable for discharge and PMD follow-up. Departure - Departure Time of Disposition: 13:48 Disposition: Home, Self-Care 01 Condition: Good Clinical Impression: Closed head injury Qualifiers: Encounter type: initial encounter Qualified Code(s): S09.90XA - Unspecified injury of head, initial encounter - Discharge Information Instructions: Head Injury, Adult Referrals: Rolan Nevarez MD [Primary Care Provider] - Forms: ED Department Discharge Additional Instructions: Your labs showed a mild elevation in your BUN and creatinine which are blood tests that monitor your kidney function. This is most commonly caused by dehydration. You should drink plenty of fluids and talk to your primary care physician within the next week to have your labs rechecked and ensure that it is clearing. Your head CT and C-spine CTs were negative for fracture or intracranial pathology. The following information is given to patients seen in the emergency department who are being discharged to home. This information is to outline your options for follow-up care. We provide all patients seen in our emergency department with a follow-up referral. The need for follow-up, as well as the timing and circumstances, are variable depending upon the specifics of your emergency department visit. If you don't have a primary care physician on staff, we will provide you with a referral. We always advise you to contact your personal physician following an emergency department visit to inform them of the circumstance of the visit and for follow-up with them and/or the need for any referrals to a consulting specialist. The emergency department will also refer you to a specialist when appropriate. This referral assures that you have the opportunity for follow-up care with a specialist. All of these measure are taken in an effort to provide you with optimal care, which includes your follow-up. Under all circumstances we always encourage you to contact your private physician who remains a resource for coordinating your care. When calling for follow-up care, please make the office aware that this follow-up is from your recent emergency room visit. If for any reason you are refused follow-up, please contact the [facility] Emergency Department at and asked to speak to the emergency department charge nurse. Please follow up with your primary care physician. If you do not have a primary care physician, see below: [facility] [address], [place] [id number] [facility] [address] [place], [place] [id number] [facility] [address] [place] [address] Sepsis Event Note (ED) - Focused Exam Vital Signs: Vital Signs Temp Pulse Resp BP Pulse Ox 11/13/20 13:08 97 F 74 18 133/76 96 11/13/20 12:38 97 F 74 18 133/76 96 - My Orders Last 24 Hours: My Active Orders 11/13/20 12:45 Chest 1V Frontal [CR] Stat 11/13/20 12:48 Vaccines to be Administered [RC] PER UNIT ROUTINE Pelvis 1V or 2V [CR] Stat 11/13/20 12:49 EKG 12 Lead [EKG Documentation Completion] [RC] STAT 11/13/20 13:30 Sodium Chloride 0.9% [Normal Saline] 1,000 ml IV .Bolus Saline Lock Insert [OM.PC] Stat - Assessment/Plan Last 24 Hours: My Active Orders 11/13/20 12:45 Chest 1V Frontal [CR] Stat 11/13/20 12:48 Vaccines to be Administered [RC] PER UNIT ROUTINE Pelvis 1V or 2V [CR] Stat 11/13/20 12:49 EKG 12 Lead [EKG Documentation Completion] [RC] STAT 11/13/20 13:30 Sodium Chloride 0.9% [Normal Saline] 1,000 ml IV .Bolus Saline Lock Insert [OM.PC] Stat
[2020-11-13 13:17] LABS: BLOOD UREA NITROGEN,BUN 54 mg/dL (7.0-18.0); CARBON DIOXIDE,CO2 24.1 mmol/L (21.0-32.0); CHLORIDE,CL 104 mmol/L (98-107); GLUCOSE RANDOM 117 mg/dL (74-106); POTASSIUM,K 4.5 mmol/L (3.5-5.1); SODIUM,NA 137 mmol/L (136-148)
[2020-11-13] MEDS ORDERED: Sodium Chloride 0.9% 1,000 ML IV ONE (13:30)
[2020-11-13] MEDS: Diphtheria,Pertussis(Acell),Tetanus Vaccine 0.5 ML Syringe IM ONE ×2 (13:36→13:44)
--- NOTE | 2020-11-13 13:39 | CT ---
INDICATION: Trauma; on blood thinners. Technique :CT head without intravenous contrast; coronal and sagittal reformats. FINDINGS: No evidence of intracranial hemorrhage. No mass lesions. No evidence of shift of the midline structures. The calvarium is unremarkable. Periventricular low densities secondary to small vessel disease. IMPRESSION: 1. Evidence of small vessel disease. 2. Negative unenhanced head CT otherwise. Please note that all CT scans at this facility use dose modulation, iterative reconstruction, and/or weight-based dosing when appropriate to reduce radiation dose to as low as reasonably achievable. Dictated by Hawk Chavez MD @ 11/13/2020 1:38:05 PM (Electronically Signed)
--- NOTE | 2020-11-13 13:43 | CT ---
INDICATION: Trauma; neck pain. COMPARISON: CT cervical spine May 13, 2020. TECHNIQUE: CT cervical spine without intravenous contrast; coronal and sagittal reformats. FINDINGS: No evidence of acute fracture or dislocation. 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 C1-C2 articulation is unremarkable. IMPRESSION: 1. No acute fracture or dislocation. 2. C1-C2 articulation is unremarkable. 3. 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 4. Disc space narrowing and disc degeneration at C4-5, C5-6 and C6-7. Please note that all CT scans at this facility use dose modulation, iterative reconstruction, and/or weight-based dosing when appropriate to reduce radiation dose to as low as reasonably achievable. Dictated by Hawk Chavez MD @ 11/13/2020 1:42:00 PM (Electronically Signed)
--- NOTE | 2020-11-13 13:57 | CR ---
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 And left atrial appendage ligation clip is noted. Mild stable cardiomegaly seen. Lung: Patchy airspace infiltrates with small left pleural effusion noted and volume loss seen. Bone and Soft tissue: Unremarkable for age. IMPRESSION: 1. Patchy airspace infiltrates with small left pleural effusion noted and volume loss seen. The appearance has slightly decreased compared to prior examination. Dictated by Agustin Estrada MD @ 11/13/2020 1:56:28 PM Dictated by: Agustin Estrada MD @ 11/13/2020 13:56:33 (Electronically Signed)
--- NOTE | 2020-11-13 13:59 | CR ---
INDICATION: Pelvis injury from fall, trauma code TECHNIQUE: Pelvis radiograph 1 views COMPARISON: None FINDINGS: Bone: No acute fractures or aggressive bone lesions are identified. Moderate diffuse osteopenia is noted. Joint: The hip joints are unremarkable. The visualized sacroiliac joints are unremarkable in appearance. The pubic symphysis is normal in appearance. Soft tissue: Unremarkable. The visualized bowel gas pattern of the pelvis is unremarkable in appearance. No radiopaque foreign bodies are seen. IMPRESSION: 1. No acute osseous injuries or abnormalities are noted. Dictated by: Agustin Estrada MD @ 11/13/2020 13:58:05 (Electronically Signed)
[2020-11-13 14:05] VITALS: BP 143/80
[2020-11-13 14:06] VITALS: PULSE 77
== END 2020-11-13 14:00 | disposition home or self-care (01) ==
LOC: MW.ED 12:44
DX: S09.90XA Unspecified injury of head, initial encounter (principal); I48.91 Unspecified atrial fibrillation; I25.10 Atherosclerotic heart disease of native coronary artery without angina pectoris; I11.0 Hypertensive heart disease with heart failure; I50.9 Heart failure, unspecified; J44.9 Chronic obstructive pulmonary disease, unspecified; M10.9 Gout, unspecified; Z88.4 Allergy status to anesthetic agent; Z79.82 Long term (current) use of aspirin; Z79.01 Long term (current) use of anticoagulants; Z79.899 Other long term (current) drug therapy; W18.30XA Fall on same level, unspecified, initial encounter
CPT/HCPCS: 36415; 70450; 70450-26; 71045; 71045-26; 72125; 72125-26; 72170; 72170-26; 80053; 84484; 85025; 85610; 85730; 90715; 93005; 99285-25

== ENCOUNTER 2022-08-01 21:09 | Emergency (ER) | payer MEDICARE, OTHER ==
[2022-08-01] MEDS ORDERED: Sodium Chloride 0.9% 2.5 ML Syringe FLUSH PRN (22:15)
[2022-08-01] MEDS ORDERED: Sodium Chloride 0.9% 10 ML Syringe FLUSH PRN (22:15)
[2022-08-01] MEDS ORDERED: fentaNYL 50 MCG/ML SDV IVPUSH ONE (22:17)
[2022-08-01 22:43] LABS: HEMATOCRIT 31.8 % (38.0-50.0); HEMOGLOBIN 10.4 g/dL (13.0-17.0); MEAN CORPUSCULAR HEMOGLOBIN 28.8 pg (27.0-32.0); MEAN CORPUSCULAR HGB CONC 32.7 g/dL (31.0-37.0); MEAN CORPUSCULAR VOLUME 88.1 fL (80.0-98.0); NRBC ABSOLUTE 0 K/uL; PLATELET COUNT,PLT 193 K/uL (150-400); RED BLOOD CELL COUNT 3.61 M/uL (4.50-5.90); WHITE BLOOD CELL COUNT,WBC 13.08 K/uL (4.0-11.0)
[2022-08-01 23:00] LABS: INR 2.68 (0.86-1.11)
[2022-08-01 23:17] LABS: A/G RATIO 0.7 (0.9-1.6); ALBUMIN 3.1 g/dL (3.4-5.0); BILIRUBIN TOTAL 0.9 mg/dL (0.2-1.0); CALCIUM 9.1 mg/dL (8.5-10.1); CARBON DIOXIDE,CO2 25.9 mmol/L (21.0-32.0); CREATININE 1.2 mg/dL (0.8-1.3); EST CRCL DRUG DOSING (CG) 52.84 mL/min; POTASSIUM,K 4.4 mmol/L (3.5-5.1); PROTEIN TOTAL,TP 7.6 g/dL (6.4-8.2)
[2022-08-01 23:19] LABS: C-REACTIVE PROTEIN 13.7 mg/dL (0.00-0.90)
[2022-08-01 23:35] LABS: BAND ABSOLUTE MAN 1.7; BAND PERCENT MAN 13 %; LYMPHOCYTES ABSOLUTE MAN 0.7 (0.6-2.4); LYMPHOCYTES PERCENT MAN 5 % (16.0-40.0); SEG NEUTROPHILS ABSOLUTE MAN 10.7 (1.4-5.7); SEG NEUTROPHILS PERCENT MAN 82 % (48.0-80.0)
[2022-08-02 02:37] VITALS: BP 122/71; PULSE 91
== END 2022-08-02 02:25 | disposition home or self-care (01) ==
LOC: MW.ED 21:09
DX: M25.571 Pain in right ankle and joints of right foot (principal); I48.91 Unspecified atrial fibrillation; I25.10 Atherosclerotic heart disease of native coronary artery without angina pectoris; I11.0 Hypertensive heart disease with heart failure; I50.9 Heart failure, unspecified; J44.9 Chronic obstructive pulmonary disease, unspecified; M10.9 Gout, unspecified; Z88.4 Allergy status to anesthetic agent; Z79.82 Long term (current) use of aspirin; Z86.73 Personal history of transient ischemic attack (TIA), and cerebral infarction without residual deficits; Z86.16 Personal history of COVID-19; Z79.01 Long term (current) use of anticoagulants; Z79.899 Other long term (current) drug therapy
CPT/HCPCS: 36415; 73560; 73610; 73630; 80053; 83605; 85025; 85610; 86140; 93971; 96374; 99284; J3010; J3490

== ENCOUNTER 2022-09-05 09:23 | Emergency (ER) | payer MEDICARE, OTHER ==
[2022-09-05 11:10] VITALS: BP 126/69; PULSE 79
== END 2022-09-05 10:48 | disposition home or self-care (01) ==
LOC: MW.ED 09:23
DX: S41.102A Unspecified open wound of left upper arm, initial encounter (principal); J90 Pleural effusion, not elsewhere classified; I48.91 Unspecified atrial fibrillation; I25.810 Atherosclerosis of coronary artery bypass graft(s) without angina pectoris; I11.0 Hypertensive heart disease with heart failure; I50.9 Heart failure, unspecified; J44.9 Chronic obstructive pulmonary disease, unspecified; M10.9 Gout, unspecified; Z86.73 Personal history of transient ischemic attack (TIA), and cerebral infarction without residual deficits; Z86.16 Personal history of COVID-19; Z95.1 Presence of aortocoronary bypass graft; Z79.82 Long term (current) use of aspirin; Z79.01 Long term (current) use of anticoagulants; Z79.899 Other long term (current) drug therapy; Z88.4 Allergy status to anesthetic agent; W19.XXXA Unspecified fall, initial encounter
CPT/HCPCS: 70450; 70450-26; 71045; 71045-26; 72125; 72125-26; 99284

== ENCOUNTER 2022-09-07 08:44 | Emergency (ER) | payer MEDICARE, OTHER ==
[2022-09-07 09:07] VITALS: BP 140/105; PULSE 87
== END 2022-09-07 09:05 | disposition home or self-care (01) ==
LOC: MW.ED 08:44
DX: B02.9 Zoster without complications (principal); I48.91 Unspecified atrial fibrillation; I25.810 Atherosclerosis of coronary artery bypass graft(s) without angina pectoris; I11.0 Hypertensive heart disease with heart failure; I50.9 Heart failure, unspecified; J44.9 Chronic obstructive pulmonary disease, unspecified; M10.9 Gout, unspecified; Z86.16 Personal history of COVID-19; Z79.82 Long term (current) use of aspirin; Z79.01 Long term (current) use of anticoagulants; Z79.899 Other long term (current) drug therapy
CPT/HCPCS: 99283; 99284